=== PATIENT | male | born 1965 | race Caucasian/White ===

== ENCOUNTER 2021-03-26 11:04 | Emergency (ER) | payer SELFPAY ==
[2021-03-26 11:29] VITALS: BP 137/87; PULSE 82; RESP 18; TEMP 36.6; O2SAT 97; BMI 24.3
[2021-03-26 11:40] VITALS: BP 128/85; PULSE 70; RESP 18; TEMP 36.9; O2SAT 98
--- NOTE | 2021-03-26 11:40 | USR_ITS ---
PROCEDURE INFORMATION: Exam: US Retroperitoneal; Complete; Kidneys and Bladder Exam date and time: 03/26/2021 11:40 AM Age: 56 years old Clinical indication: Other: Blood clots in urin; Additional info: Evaluate for cancer TECHNIQUE: Imaging protocol: Real-time ultrasound of the retroperitoneum with image documentation. Complete exam focused on the kidneys and bladder. COMPARISON: No relevant prior studies available. FINDINGS: Right kidney: Right kidney measures 11.6 x 5.8 x 6.0 cm and has normal cortical thickness and echogenicity. There is no focal mass, stone or hydronephrosis. Left kidney: Left kidney measures 12.2 x 5.8 x 4.7 cm. There is moderate left hydronephrosis. No focal mass or stone is identified. Urinary bladder: There is a mass demonstrating blood flow within the urinary bladder which is suspicious for bladder tumor such as an invasive carcinoma. Further evaluation suggested. US/US renal BI* [id number] IMPRESSION: 1. Findings worrisome for malignant tumor of the urinary bladder. 2. Left hydronephrosis. Radiation Dose CTDIVOL = (mGy): DLP = (mGy-cm)
--- NOTE | 2021-03-26 11:44 | ED_ITS ---
HPI - General Adult General: Chief complaint: Urogenital-Male Stated complaint: blood in urine Time Seen by Provider: 03/26/21 11:20 History of Present Illness: HPI narrative: Patient is a 56-year-old male with no significant past medical history presents to the emergency room 2 days of hematuria with clots. Patient reports symptoms of polyuria, denies any dysuria. No prior history of hematuria, prostate issue, trauma to the groin. Patient has no flank pain, nausea/vomiting, fever/chills. Patient denies any recent weight loss. Onset: 2 days ago Duration:2 days Location:home Severity:moderate Review of Systems Narrative: Constitutional: No fever, no chills. HEENT: No vision changes CV: No chest pain, no palpitations PULM: no cough, no dyspnea. GI: No abdominal pain, no N/V/D. : No dysuria, +polyuria/hematuria MSKEL: No muscle pain SKIN: No new rashes, no lesions. NEURO: No headache, no focal weakness. HEME: No visible bruises PSYCH: Normal mood PFSH ED PFSH: Medical History (Updated 03/28/21 @ 16:33 by ANA Cochran) Chronic back pain Family History (Updated 03/28/21 @ 16:34 by ANA Cochran) Father CAD (coronary artery disease) Hypertension Social History Lives independently: Yes Housing: House Marital status: / Number of children: 3 Physical Exam Narrative: EXAM NARRATIVE: Head: Atraumatic Eyes: PERRL, conjunctiva without injection ENT: Mucous membrane moist NECK: Supple, ROM intact LUNGS: LCTAB, no crackles/rhonchi CV: RRR ABDOMEN: Soft, no focal TTP. NO guarding rebound, guarding, rigidity. No CVA tenderness to percussion. Neg Zhang/Neg McBurney's point tenderness, no campbell prabupic tenderness to palpation. EXTREMITY: Normal ROM SKIN: No rash or erythema NEURO: Awake and alert, no focal motor deficits PSYCH: Normal mood and affect Course Vital Signs: Vital signs: Vital Signs Temperature 98.2 F 03/26/21 13:49 Pulse Rate 84 03/26/21 13:49 Respiratory Rate 17 03/26/21 13:49 Blood Pressure 136/81 03/26/21 13:49 Pulse Oximetry 98 03/26/21 13:49 MDM - General Adult MDM Narrative: Medical decision making narrative: 56-year-old male presented to emergency room with new onset of hematuria x2 days with passage of clots and polyuria. Patient has no other focal findings on exam. Work-up: CBC, BMP, UA, and ultrasound for evaluation of possible bladder cancer. Hemoglobin within normal limit. Creatinine within normal limit. Ultrasound shows a left-sided hydronephrosis with lesion in the bladder. Have discussed these findings extensively with patient and patient received the ultrasound re port this time. I have given patient follow up with our case work aide to be seen by our outpatient Urologist Dr. Stallings for further evaluation of bladder lesion. Patient aware of a call from our case work aide to schedule for appointment(s) and verbalizes understanding of the importance of following up. Disposition: Discharge. Patient counseled regarding diagnostic impression, treatment plan. Patient given ED strict return precautions to return for continuation, worsening, or development of new symptoms. Instructed to f/u w/ Urology regarding symptoms today. Patient verbalized understanding. Lab Data: Labs: Lab Results 03/26/21 03/26/21 03/26/21 11:15 11:47 11:47 WBC 8.4 10^3/uL 10^3/ uL (4.0-10.0) RBC 4.98 10^6/uL 10^6 /uL (4.1-5.3) Hgb 16.0 g/dL g/dL (11.7-16.6) Hct 46.2 % % (42.0-52.0) MCV 92.8 fl fl (80-94) MCH 32.1 pg pg (28.0-34.0) MCHC 34.6 g/dL g/dL (30.0-36.0) RDW 12.7 % % (12.1-15.1) Plt Count 291 10^3/cmm 10^3 /cmm (130-400) MPV 10.2 fL fL (7.4-10.4) Neut % (Auto) 70.5 % % Lymph % (Auto) 19.7 % % [place] % (Auto) 8.4 % % Eos % (Auto) 0.5 % % Baso % (Auto) 0.5 % % Neut # (Auto) 5.94 10^3/uL 10^3 /uL (1.8-7.7) Lymph # (Auto) 1.7 10^3/uL 10^3/ uL (0.8-4.8) [place] # (Auto) 0.7 10^3/uL 10^3/ uL (0.2-0.9) Eos # (Auto) 0.0 10^3/uL 10^3/ uL (0.0-0.8) Baso # (Auto) 0.0 10^3/uL 10^3/ uL (0.0-0.1) Nucleated RBC % (a uto) 0 % % Nucleated RBCs # 0.0 /100WBC /100W BC Sodium 141 mmol/L mmol/L (136-145) Potassium 4.1 mmol/L mmol/L (3.5-5.1) Chloride 104 mmol/L mmol/L (98-107) Carbon Dioxide 27 mmol/L mmol/L (22-29) Anion Gap 14.1 (5-19) BUN 16 mg/dL mg/dL (6-20) Creatinine 1.0 mg/dL mg/dL (0.7-1.2) GFR Calculation 77.3 mL/min L mL/ min (90-130) Glucose 95 mg/dL mg/dL (65-115) Calculated Osmolal ity 293 mOsm/kg mOsm/ kg (285-295) Calcium 8.9 mg/dL mg/dL (8.5-10.5) Urine Color Red (Yellow) Urine Appearance Bloody A (CLEAR) Urine pH 6.5 (5-7) Ur Specific Gravit y 1.010 (1.005-1.030) Urine Protein 3+ H (Negative) Urine Glucose (UA) Norm (Normal) Urine Ketones Negative (Negative) Urine Blood 3+ H (Negative) Urine Nitrate Negative (Negative) Urine Bilirubin Neg (Negative) Urine Urobilinogen 1 mg/dL H mg/dL (Negative) Ur Leukocyte Kemi ase Negative (Negative) Urine RBC Too numerous to c nt /hpf H /hpf (0-2) Urine WBC 0-4 /hpf H /hpf (0-5) Ur Squamous Epith Cells None /hpf /hpf (0-5) Amorphous Sediment Not Reportable Urine Bacteria Trace /hpf /hpf (NONE) Imaging Data^: Other Imaging: Radiologist's impression: [address], [place] [address]Jrgwdqtfag ReportSigned with Addenda Patient: Bill Quintero #: [id number]: [birth year] 65Acct#:[id number]/Sex: 56 / MADM Date: 03/26/21Loc: ERRoom/Bed:Attending Dr: Ordering Provider/Ordering MD: Donna Angela MD Date of Service: 03/26/21 Procedure(s): US renal BI* [id number] Accession Number(s): [id number] Report Number: [id number] ADDENDUM US/US renal BI* [id number] Addendum: THIS REPORT CONTAINS FINDINGS THAT MAY BE CRITICAL TO PATIENT CARE. The findings were acknowledged by DONNA ANGELA at 1:41 PM CDTon 03/26/2021through the operation center. Radiation Dose CTDIVOL = (mGy): DLP = (mGy-cm) Addendum Dictated By: Chris GarghAddendum Signed By: Yoan Garg Date/Time:03/26/21 1343Addendum Cosigned By: PROCEDURE INFORMATION: Exam: US Retroperitoneal; Complete; Kidneys and Bladder Exam date and time: 03/26/2021 11:40 AM Age: 56 years old Clinical indication: Other: Blood clots in urin; Additional info: Evaluate for cancer TECHNIQUE: Imaging protocol: Real-time ultrasound of the retroperitoneum with image documentation. Complete exam focused on the kidneys and bladder. COMPARISON: No relevant prior studies available. FINDINGS: Right kidney: Right kidney measures 11.6 x 5.8 x 6.0 cm and has normal cortical thickness and echogenicity. There is no focal mass, stone or hydronephrosis. Left kidney: Left kidney measures 12.2 x 5.8 x 4.7 cm. There is moderate left hydronephrosis. No focal mass or stone is identified. Urinary bladder: There is a mass demonstrating blood flow within the urinary bladder which is suspicious for bladder tumor such as an invasive carcinoma. Further evaluation suggested. US/US renal BI* [id number] IMPRESSION: 1. Findings worrisome for malignant tumor of the urinary bladder. 2. Left hydronephrosis. Radiation Dose CTDIVOL = (mGy): DLP = (mGy-cm) Dictated By:Yoan Garg By:Yoan Garg Date/Time:03/26/21 1333DD/ 1140 Discharge Plan Discharge Patient Disposition: Home Clinical Impression: Hematuria, Bladder mass Condition: Stable Prescriptions: No Action No Known Home Medications RF: 0 Discharge Orders: Discharge ED (Routine); Ordered 03/26/21 Ordered By: Donna Angela Referrals: Miracle Huddleston FNP [Primary Care Provider] - Discharge Diet: Advance as tolerated Discharge Activity: Resume usual activity Patient Instructions: Hematuria (ED) Activity Restrictions/Additional Instructions: Our case work aide will have you follow-up with our Urologist Dr. Stallings in the next few days. You would be expected to have a phone call with our case work aide who will put you on the schedule. Please follow up with Dr. Stallings for the bladder mass. Come back to the emergency room if you are unable to urinate, have fever or chills, flank pain, or any new concerning complaints. [address] [id number] ReportSigned Patient: Bill Quintero #: [id number]: 1965Acct#:[id number]/Sex: 56 / MADM Date: 03/26/21Loc: ERRoom/Bed:Attending Dr: Ordering Provider/Ordering MD: Donna Angela MD Date of Service: 03/26/21 Procedure(s): US renal BI* [id number] Accession Number(s): [id number] Report Number: [id number] PROCEDURE INFORMATION: Exam: US Retroperitoneal; Complete; Kidneys and Bladder Exam date and time: 03/26/2021 11:40 AM Age: 56 years old Clinical indication: Other: Blood clots in urin; Additional info: Evaluate for cancer TECHNIQUE: Imaging protocol: Real-time ultrasound of the retroperitoneum with image documentation. Complete exam focused on the kidneys and bladder. COMPARISON: No relevant prior studies available. FINDINGS: Right kidney: Right kidney measures 11.6 x 5.8 x 6.0 cm and has normal cortical thickness and echogenicity. There is no focal mass, stone or hydronephrosis. Left kidney: Left kidney measures 12.2 x 5.8 x 4.7 cm. There is moderate left hydronephrosis. No focal mass or stone is identified. Urinary bladder: There is a mass demonstrating blood flow within the urinary bladder which is suspicious for bladder tumor such as an invasive carcinoma. Further evaluation suggested. US/US renal BI* [id number] IMPRESSION: 1. Findings worrisome for malignant tumor of the urinary bladder. 2. Left hydronephrosis. Radiation Dose CTDIVOL = (mGy): DLP = (mGy-cm) Dictated By:Yoan Garg By:Yoan Garg Date/Time:03/26/21 1333DD/ 1140 Coding Level of Care Code ED [employer] for [facility]
[2021-03-26 12:10] LABS: Add Urine Microscopic? YES; Bilirubin Urine Neg (Negative); Blood Urine 3+ (Negative); Glucose Urine UA Norm (Normal); Ketones Urine Negative (Negative); Leukocyte Esterase Urine Negative (Negative); Nitrate Urine Negative (Negative); Protein Urine 3+ (Negative); Urine Appearance Bloody (CLEAR); Urine Color Red (Yellow); Urobilinogen Urine 1 mg/dL (Negative); pH Urine 6.5 (5-7)
[2021-03-26 12:11] LABS: Basophils % 0.5 %; Eosinophils % 0.5 %; Hematocrit 46.2 % (42.0-52.0); Lymphocytes # 1.7 10^3/uL (0.8-4.8); Lymphocytes % 19.7 %; Mean Corpuscular HGB Conc 34.6 g/dL (30.0-36.0); Mean Corpuscular Hemoglobin 32.1 pg (28.0-34.0); Mean Corpuscular Volume 92.8 fl (80-94); Mean Platelet Volume 10.2 fL (7.4-10.4); Monocytes # 0.7 10^3/uL (0.2-0.9); Monocytes % 8.4 %; Neutrophils # 5.94 10^3/uL (1.8-7.7); Neutrophils % 70.5 %; Nucleated Red Blood Cells % 0 %; Platelet Count 291 10^3/cmm (130-400); Red Blood Count 4.98 10^6/uL (4.1-5.3); Red Cell Distribution Width 12.7 % (12.1-15.1); White Blood Count 8.4 10^3/uL (4.0-10.0)
[2021-03-26 12:11] LABS: RBC Urine TOO NUMEROUS TO CNT /hpf (0-2)
[2021-03-26 12:13] LABS: Bacteria Urine TRACE /hpf; WBC Urine 0-4 /hpf (0-5)
[2021-03-26 12:14] LABS: Add Urine Culture? Yes
[2021-03-26 12:34] VITALS: BP 146/83; PULSE 81; RESP 17; O2SAT 98
[2021-03-26 12:37] LABS: Anion Gap 14.1 (5-19); Blood Urea Nitrogen 16 mg/dL (6-20); Calcium 8.9 mg/dL (8.5-10.5); Carbon Dioxide 27 mmol/L (22-29); Chloride 104 mmol/L (98-107); Glomerular Filtration Rate 77.3 mL/min (90-130); Glucose 95 mg/dL (65-115); Osmolality Calculated 293 mOsm/kg (285-295); Potassium 4.1 mmol/L (3.5-5.1); Sodium 141 mmol/L (136-145)
[2021-03-26 13:07] VITALS: BP 118/87; PULSE 88; RESP 18; O2SAT 98
[2021-03-26 13:41] VITALS: BP 136/81; PULSE 84; RESP 17; TEMP 36.8; O2SAT 98
[2021-03-26 13:49] VITALS: BP 136/81; PULSE 84; RESP 17; TEMP 36.8; O2SAT 98
--- NOTE | 2021-03-29 09:57 | PC.SOCIAL ---
Spoke to Ирина at Urology and notified of referral for Dr Stallings for bladder mass. She will review and call patient for appt.
--- NOTE | 2021-04-06 12:53 | DCPLANNER ---
Patient has a follow up appointment scheduled for Thursday, April 08, 2021 at 11:[address] Stallings. Clinic will call patient with appointment information.
--- NOTE | 2021-04-14 13:42 | DCPLANNER ---
Patient had a follow up appointment scheduled for 04.08.[address] Stallnigs - patient did attend appointment.
== END 2021-03-26 13:51 | disposition home or self-care (01) ==
PROVIDERS: Emergency Provider Emergency Medicine; PCP Nurse Practitioner Family
DX: R31.9 Hematuria, unspecified (principal); N32.9 Bladder disorder, unspecified
CPT/HCPCS: 76770; 80048; 81001; 85025; 87086; 99283

== ENCOUNTER → 2021-04-08 12:12 | Outpatient (BNVA) | payer MEDICARE, SELFPAY | PROVIDERS: PCP Nurse Practitioner Family; Visit Provider Urology | DX: N32.89 Other specified disorders of bladder (principal); C67.8 Malignant neoplasm of overlapping sites of bladder; N13.30 Unspecified hydronephrosis; Z20.822 Contact with and (suspected) exposure to COVID-19 | CPT/HCPCS: 81003; 87635 ==

== ENCOUNTER 2021-04-13 13:54 | Outpatient (CLI) | payer MEDICARE, SELFPAY ==
--- NOTE | 2021-04-13 14:00 | CT_ITS ---
WS: [id number] CT CHEST, ABDOMEN AND PELVIS WITH AND WITHOUT CONTRAST. HISTORY: BLADDER CANCER TECHNIQUE: Noncontrast imaging first performed through the abdomen and pelvis. Contiguous 5 mm axial imaging performed through the chest, abdomen and pelvis with IV contrast, oral contrast has not been provided. Coronal and sagittal reformats chest. Coronal and sagittal reformats through the abdomen an d pelvis. All CT scans at [facility] use at least one of these dose optimization techniques: automated exposure control; mA and/or kV adjustment per patient size (includes targeted exams where d ose is matched to clinical indication); or iterative reconstruction. CONTRAST: Omnipaque 350; 95 mL IV. DLP: 2056.63 mGy.cm COMPARISON: Renal ultrasound 03/26/[address]: There are a few benign scattered granulomata. No suspicious mass or pulmonary nodule identi fied. Normal aorta. Normal size pulmonary artery. No mediastinal or hilar adenopathy. The heart is no rmal size. No pericardial or pleural effusion. Mild RIGHT curvature thoracic spine. Mild anterior wed ging of T3, T4 and T5. Abdomen CT: Liver, spleen, pancreas, gallbladder and adrenal glands are normal. Normal aorta. Normal size RIGHT kidney with a few too small to characterize hypodensities. There is no solid mass o r obstruction. Normal size LEFT kidney. Marked hydroureteronephrosis. Ureter is tortuous a long-standing obstruction . The ureteral obstruction is secondary to a soft tissue mass in the urinary bladder. There is a none nhancing solid appearing mass in the upper pole of the LEFT kidney measuring 2.5 x 2.5 cm which is pr obably a complex cyst. There is no enhancement to suggest renal cell neoplasm. Diffuse constipation throughout the colon. The appendix is normal. No mesenteric or retroperitoneal a denopathy. Pelvic CT: Moderately well distended urinary bladder. There is a large soft tissue lobulated tumor ce ntered in the LEFT lateral urinary bladder extending into the lumen. There is extension of the soft t issue tumor across the midline both anterior and posterior. Bladder mass measures at least 5.6 cm in length with a diameter of 2.3 cm. Bladder masses obstructing the distal LEFT ureter. Prominent semina l vesicles bilaterally. Prostate gland is very slightly enlarged encroaching towards the urinary blad angie. No definite adenopathy is identified within the pelvis. No osteoblastic or osteolytic bone disease. CT/CT chest abd pel wo/w con IMPRESSION: 1. Large mass centered in the LEFT urinary bladder measuring at least 5.6 x 2. 3 cm causing obstruction of the LEFT ureter. Highly suspicious for transitional cell neoplasm. 2. High-grade LEFT hydroureteronephrosis secondary to the bladder neoplasm. 3. Nonenhancing solid mass upper pole LEFT kidney measuring 2.5 x 2.5 cm May b e a complex cyst. 4. No adenopathy or ascites. 5. No metastatic lesions within the lungs.
[2021-04-13] MEDS: iohexol 350 mg/mL 100 mL Btl IV (14:43)
== END 2021-04-13 13:55 | disposition home or self-care (01) ==
LOC: RAD 13:56
PROVIDERS: PCP Nurse Practitioner Family; Visit Provider Urology
DX: C67.9 Malignant neoplasm of bladder, unspecified (principal); N13.30 Unspecified hydronephrosis; Z20.822 Contact with and (suspected) exposure to COVID-19
CPT/HCPCS: 71260; 74178; 87635

== ENCOUNTER 2021-04-18 16:36 | Observation (INO) | payer MEDICARE, SELFPAY ==
[2021-04-15 14:12] VITALS: BMI 24.8
[2021-04-18] VITALS (8 sets, daily range): BP systolic 130–164; BP diastolic 77–101; PULSE 64–91; RESP 14–18; TEMP 36.5–36.7; O2SAT 95–98; BMI 25.0
[2021-04-18] MEDS: sodium chloride 0.9% 1,000 ML 30 ML IV (13:03)
--- NOTE | 2021-04-18 15:14 | P.HPUD_ITS ---
Surgery/Procedure H&P Update DATE OF PROCEDURE: April 18, 2021 DATE H&P PERFORMED: 04/14/21 H&P UPDATE INFORMATION: I have reviewed H&P completed within last 30 days, I have examined patient prior to procedure, No changes to prior documentation and H&[place] is in [facility] [place] on date indicated PREOP DIAGNOSIS: Bladder cancer PLANNED PROCEDURE: Operation Date: 04/18/21 14:10 Proposed Procedures p Transurethral Resection Bladder Tumor 52330 C67.8 C67.9(Not Applicable) - Panchito Stallings MD s Cystoscopy(Not Applicable) - Panchito Stallings MD
--- NOTE | 2021-04-18 15:25 | P.OP_ITS ---
Operative Report Date of procedure: April 18, 2021 Pre-op Diagnosis: Large volume, invasive TCCA of the bladder Post-op diagnosis: same Procedure Done: Cystoscopy, transurethral resection bladder tumor, >5 cm resection Specimens removed/disposition: Samples of bladder tumor Pathology: Resection chips from the site at the neck of the tumor into the bladder wall in 3 different areas. Surgeon: Haylie Anesthesia: General Estimated blood loss: <25 cc Urine output: Not measured Complications: None Findings: Very large widely involved invasive high-grade appearing TCCA of the bladder extending from the left lateral wall anteriorly posteriorly involving the left trigone. Very vascular. Given the full-thickness involvement of the bladder wall on both ultrasound and CT scan goal of this procedure was sampling in order to prove pathology and not try complete resection which would be futile. The hope is to prove the pathology and then attempt at definitive therapy via combination neoadjuvant chemotherapy and extirpative therapy possible neobladder construction. Area much >5 cm diameter resection around the base of the tumor into the bladder wall in 3 different areas anteriorly distally and medially. Condition: stable Disposition: PACU Brief History: Mr. Quintero is a 56-year-old white male who I evaluated recently for the first time with gross hematuria and was found to have a large invasive appearing bladder tumor both on ultrasound that preceded the visit and cystoscopy at his first visit. Was deemed to be a high risk tumor and therefore prior to biopsy or resection a CT scan was ordered. Thankfully it showed very large volume in the bladder but no clear evidence of extension outside of the bladder in the form of lymphadenopathy or bony disease. Did appear to involve full-thickness bladder wall and was obstructing the left ureteral orifice. Rather than attempt complete resection which would be futile it was decided to perform biopsies in the hopes of expediting more definitive therapy most likely neoadjuvant chemotherapy with radical cystectomy. He is admitted today for that sampling. Procedure: After routine preoperative evaluation examination and obtaining of informed consent he was taken to the operating suite on 04/18/2021 where general anesthesia was administered without difficulty after appropriate timeout was performed, SCDs confirmed to be functioning, preoperative antibiotics administered, beta-allison protocol confirmed. Prepped and draped in usual sterile fashion in dorsolithotomy position paying careful attention to avoiding pressure points. 21 Ugandan cystoscope with 30 degree lens was introduced into urethra meatus and advanced into the bladder to videoscopy without difficulty. The bladder was systematically examined with both 30 and 70 degree lenses. Intraoperative findings confirmed previous cystoscopic findings as well as appearance supported radiographically. The urethra was then calibrated with Holden sounds and easily accommodated 30 Ugandan. The 25 Ugandan continuous-flow resectoscope sheath with visual obturator in place was advanced into the bladder without difficulty. The gyrus bipolar system was utilized in the supersect was selected for sampling based on the density and thickness of the tissue. The tumor extended well into the middle of the lumen of the bladder. The sites for sampling were selected mostly around the base of the tumor where there was involvement with the bladder wall as well as the exophytic tumor. The distal and lateral resection sites extended about 6 cm into the bladder wall. Hemostasis was meticulously controlled. Sampling was excellent Hemostasis was obtained with button probe. A few areas on the 1 resected area on the most luminal side of the mass were friable and bleeding and these were fulgurated as well with the button probe. All chips were evacuated from the bladder with an Ellik evacuator. Final inspection confirmed hemostasis and all chips removed. Letter was drained with a 22 Ugandan three-way Mcmillan catheter with 10 cc placed in the balloon and CBI started in a slow rate remaining clear.
[2021-04-18] MEDS: levofloxacin-dextrose 5 % 500 MG/100 ML PREMIX 100 MG IV (15:37)
[2021-04-18] MEDS: lidocaine 2% Urojet 20 mL TOPICAL (16:18)
--- NOTE | 2021-04-18 17:11 | ANE.PACU2 ---
Inpatient post-anesthesia follow up: Airway intact: Yes Vital signs: Temperature 97.7 F Pulse Rate 64 Respiratory Rate 18 Blood Pressure 159/86 Pulse Oximetry 98 Oxygen Delivery Me thod Room Air Oxygen Flow Rate Fraction of Inspir ed Oxygen Hydration adequate: Yes Nausea and vomiting: No Pain level: 2 Mental status: Baseline
[2021-04-18 17:18] LABS: Glucose Point of Care 108 mg/dL (70-110)
[2021-04-18] MEDS: docusate sodium 100 mg Capsule PO (17:57)
[2021-04-18] MEDS: dextrose 5%-ns + KCl 20 20 MEQ/1,000 ML BAG 100 MEQ IV (17:57)
[2021-04-19 02:25] LABS: Basophils % 0.2 %; Hematocrit 42.3 % (42.0-52.0); Hemoglobin 14.4 g/dL (11.7-16.6); Mean Corpuscular Hemoglobin 31.4 pg (28.0-34.0); Mean Corpuscular Volume 92.2 fl (80-94); Mean Platelet Volume 10.2 fL (7.4-10.4); Monocytes # 0.7 10^3/uL (0.2-0.9); Monocytes % 5.9 %; Neutrophils # 9.54 10^3/uL (1.8-7.7); Neutrophils % 84.4 %; Nucleated Red Blood Cells % 0 %; Platelet Count 285 10^3/cmm (130-400); Red Blood Count 4.59 10^6/uL (4.1-5.3); Red Cell Distribution Width 12.5 % (12.1-15.1); White Blood Count 11.3 10^3/uL (4.0-10.0)
[2021-04-19 02:58] LABS: Blood Urea Nitrogen 15 mg/dL (6-20); Calcium 8.4 mg/dL (8.5-10.5); Carbon Dioxide 24 mmol/L (22-29); Chloride 105 mmol/L (98-107); Glomerular Filtration Rate 62.6 mL/min (90-130); Glucose 153 mg/dL (65-115); Osmolality Calculated 294 mOsm/kg (285-295); Sodium 140 mmol/L (136-145)
[2021-04-19] MEDS: dextrose 5%-ns + KCl 20 20 MEQ/1,000 ML BAG 100 MEQ IV (03:36)
[2021-04-19 04:01] VITALS: BP 136/78; PULSE 87; RESP 17; TEMP 36.7; O2SAT 97
[2021-04-19 08:00] VITALS: BP 152/84; PULSE 78; RESP 17; TEMP 36.6; O2SAT 98
[2021-04-19] MEDS: docusate sodium 100 mg Capsule PO (09:32)
[2021-04-19 12:00] VITALS: BP 159/84; PULSE 85; RESP 17; TEMP 36.9; O2SAT 96
--- NOTE | 2021-04-19 12:37 | PM.DCS ---
Discharge Providers Date of Admission: 04/18/21 16:36 Date of Discharge: April 19, 2021 Attending Provider at Admission: Panchito Stallings MD Attending Provider at Discharge: Panchito Stallings MD Primary Care Provider: ANA Lemons Diagnoses at Discharge Discharge Diagnosis (1) Bladder cancer: Status: Acute Permanent problem details: 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 Qualifiers: Bladder location: overlapping sites Qualified Code(s): C67.8 - Malignant neoplasm of overlapping sites of bladder (2) Hydronephrosis, left: Status: Acute Permanent problem details: Secondary to obstructing bladder cancer (3) Primary malignant neoplasm of overlapping sites of bladder: Status: Acute Reason for Visit Reason for Visit: Malignant neoplasm of bladder Hospital Course Hospital Course Admitted on the day of the procedure which went well. Complete resection was not attempted but rather adequate sampling to confirm TCCA. It is clear that this is a muscle invasive tumor based on ultrasound CT scan and cystoscopic findings. Resection was performed in the base to help evaluate for muscle involvement. Postoperatively he did well. Mcmillan catheter was removed on postop day #1 and he voided spontaneously with clearing urine. PVR bladder scan showed that he emptied well. Prior to catheter removal he was having a lot of problems with bladder spasms but those resolved with catheter removal. Scheduled tomorrow to see Dr. Moctezuma. Consult has been [facility] to [facility] for extirpative therapy planning possible neobladder. Physical Exam Const: COMMON NORMALS: no acute distress, alert and well nourished GENERAL APPEARANCE: well kempt and well developed ORIENTATION/CONSCIOUSNESS: not confused HENMT: COMMON NORMALS: normocephalic and atraumatic HEAD & SCALP: normocephalic and atraumatic Eye: COMMON NORMALS: conjunctivae normal and no scleral icterus CONJUNCTIVA: Yes conjunctivae normal Neck/C-Spine: COMMON NORMALS: full ROM GENERAL: Yes normal visual inspection Resp: COMMON NORMALS: normal respiratory effort EFFORT & INSPECTION: No labored and No Actively coughing Neuro: SENSORIUM/ORIENTATION: Yes alert Psych: COMMON NORMALS: mental status grossly normal APPEARANCE: Yes grossly normal and Yes well kempt ATTITUDE: Yes calm and Yes engaged Skin: COMMON NORMALS: no rashes or lesions noted and no jaundice GENERAL SKIN EXAM: no rashes or lesions noted Discharge Data Data Completed and Pending: Pending at discharge Category Date Time Status Pathology: Surgic al [PTH] Routine Pth 04/18/21 16:39 Received Labs from last 24 hours 04/19/21 04/19/21 04/18/21 02:06 02:06 17:13 WBC 11.3 H RBC 4.59 Hgb 14.4 Hct 42.3 MCV 92.2 MCH 31.4 MCHC 34.0 RDW 12.5 Plt Count 285 MPV 10.2 Neut % (Auto) 84.4 Lymph % (Auto) 9.0 [place] % (Auto) 5.9 Eos % (Auto) 0.0 Baso % (Auto) 0.2 Neut # (Auto) 9.54 H Lymph # (Auto) 1.0 [place] # (Auto) 0.7 Eos # (Auto) 0.0 Baso # (Auto) 0.0 Nucleated RBC % (a uto) 0 Nucleated RBCs # 0.0 Sodium 140 Potassium 4.0 Chloride 105 Carbon Dioxide 24 Anion Gap 15.0 BUN 15 Creatinine 1.2 GFR Calculation 62.6 L Glucose 153 H POC Glucose 108 Calculated Osmolal ity 294 Calcium 8.4 L Vitals: Last Vital Signs Temp 97.8 F 04/19/21 08:00 Pulse 78 04/19/21 08:00 Resp 17 04/19/21 08:00 BP 152/84 04/19/21 08:00 Pulse Ox 98 04/19/21 08:00 Discharge Plan Discharge Patient Disposition: Home Condition: Stable Prescriptions: No Action No Known Home Medications RF: 0 Discharge Orders: Discharge Order (Routine); Ordered 04/19/21 Ordered By: Panchito Stallings Referrals: Panchito Stallings MD [Physician] - (To be arranged) Discharge Diet: Usual diet Discharge Activity: Limit activity as instructed Patient Instructions: Opioid Safety Activity Restrictions/Additional Instructions: Urology instructions: 1. Follow-up with Dr. Moctezuma as scheduled 2. We will need to communicate later this week to review the final pathology report. If you have not heard from me by Sunday please call my office. 3. Consult to [place] is pending. Can move ahead with chemotherapy and lieu of that consult. 4. No lifting >10 pounds for 3 to 4 weeks. Discharge Attestations Time Spent in Discharge Care*: greater than 30 min Quality Metrics Clinical Quality Measures During this hospital stay, did patient experience: None Coding Level of Care Code Acute Chg FW DC note Diagnoses Bladder cancer C67.8 Bladder location: overlapping sites Hydronephrosis, left N13.30 Primary malignant neoplasm of overlapping sites of bladder C67.8
[2021-04-19 13:46] VITALS: BP 159/84; PULSE 85; RESP 17; TEMP 36.9; O2SAT 96
--- NOTE | 2021-04-21 13:34 | PC.SOCIAL ---
spoke with dr. bustillos office regarding follow up. they will call the pt with a follow up date and time.
== END 2021-04-19 13:46 | disposition home or self-care (01) ==
LOC: MEDSURG 16:37
PROVIDERS: Admitting Provider Urology; PCP Nurse Practitioner Family; Visit Provider Urology
PROC: 0TBB8ZZ Excision of Bladder, Via Natural or Artificial Opening Endoscopic (ICD-10-PCS; CPT 52240; principal; 2021-04-18 14:10)
PROC: 0TJB8ZZ Inspection of Bladder, Via Natural or Artificial Opening Endoscopic (ICD-10-PCS; CPT 52000; 2021-04-18 14:10)
DX: C67.8 Malignant neoplasm of overlapping sites of bladder (principal); N13.30 Unspecified hydronephrosis
CPT/HCPCS: 52240; 36415; 36416; 51798; 80048; 82962; 85025; 88309; G0378; J1100; J1956; J2370; J2405; J2704; J3010; J3490; J7030

== ENCOUNTER 2021-04-20 13:38 | Outpatient (CLI) | payer MEDICARE, SELFPAY ==
--- NOTE | 2021-04-20 16:34 | ONC CON_ITS ---
Dr. Moctezuma New Patient Note Patient: iBll Quintero Unit #: [id number]: 1965 Dicatated By: Benito Moctezuma M.D.Date of Visit: Apr 20, 2021 Onc MED New Patient/Consult Referring Physician: Dr. Panchito Stallings M.D. Chief Complaint: Bladder cancer. History of Present Illness: This is a 56-year-old man with recently diagnosed bladder cancer, presumed to be muscle invasive, by clinical evaluation stage II (T2b, N0, M0). He indicates that sometime around December he began having more frequent urination. Within the past month he began having hematuria. On 03/26/2021 he presented to the emergency room with a 2-day history of recurrent hematuria with clots. Renal ultrasound showed a mass within the urinary bladder which was suspicious for bladder tumor. There was associated left hydronephrosis. He was then seen by Dr. Stallings and further evaluation with CT scans of the chest, abdomen, and pelvis on 04/13/2021 showed a large mass centered in the left urinary bladder measuring at least 5.6 x 2.3 cm. There was associated obstruction of the left ureter and there was marked hydroureteronephrosis. A nonenhancing solid mass was noted in the upper pole of the left kidney measuring 2.5 x 2.5 cm, possibly representing complex cyst. There was no associated adenopathy or other evidence of metastatic disease. On 04/18/2021 he underwent cystoscopy with TURBT. He was noted to have a very large invasive high-grade appearing urothelial cancer extending from the left bladder wall anteriorly and posteriorly to involve the left trigone. Multiple biopsies were obtained, as the tumor did not appear to be amenable to complete resection. Pathology results are still pending. He is seen now for further management. He has been feeling good generally. Still has normal energy and activity tolerance. His ECOG score is 0. His appetite is good and his weight is stable. He has no fever or night sweats. He does have a significant smoking history, but he does not complain of shortness of breath or cough, and he has not been having any chest pain. He has no GI complaints. He has been having very frequent urination with urgency, that has worsened since the procedure. He has had some chronic back pain, which is not any worse. He has no other joint or bone pain. He does not complain of headache or dizziness, and he has no focal neurologic symptoms. Past Medical History: His medical history includes chronic back pain and history of head injury in 2009. Past Surgical History: He underwent cystoscopy/TURBT on 04/18/2021. Medications: He is currently not on any prescription medication. Allergies: No Known Allergies. Social History: Mr. Quintero is . He has a history of smoking up to 2 packs of cigarettes daily beginning at age 17. He quit smoking approximately 10 years ago, but he has since then chewed tobacco. He has had just very little alcohol use. Family History: Father of heart attack at age 52. Mother with colon cancer at age 70. He has 7 siblings. A sister has diabetes. The others are in good health. Review Of Symptoms: Constitutional - He has good energy and activity tolerance. Appetite is good and weight is stable. No fever, night sweats, or hot flashes. ECOG score is 0, Eyes - No change in vision, ENMT - No hearing loss or tinnitus. No sinus congestion/drainage. No mouth sores. No sore throat or difficulty swallowing, Hematologic/Lymphatic - No abnormal bruising, Respiratory - No shortness of breath. No cough. No pleuritic pain or hemoptysis, Cardiovascular - No angina pain. No palpitations, Gastrointestinal - No nausea or vomiting. No heartburn or acid reflux. No diarrhea or constipation. No blood in the stool or black stools, Genitourinary (M) - He has urinary frequency and urgency, which has worsened significantly since his cystoscopy procedure. He also has had hematuria, Musculoskeletal - He has had some chronic back pain, Integumentary - No skin rash or other skin changes, Neurologic - No headache or dizziness. No numbness or tingling. No other focal neurologic symptoms, Psychiatric - He has had some anxiety, but no depression. He is having some difficulty sleeping. Vital Signs: Performed on Apr 20, 2021 14:46: 8, 0, 25.54, 1.99 sq.m, 70 in, 96 %, 83 /min, 18 /min, 152/86 mm(hg) (HIGH), 98.5 F, and 178 lbs (HIGH). Physical Examination: Constitutional - He appears to be in good general health, Eyes - Sclerae nonicteric. Conjunctivae clear, ENMT - No lesions noted in the oral cavity, Neck - No mass or thyromegaly, Hematologic/Lymphatic - No cervical, clavicular, or axillary adenopathy, Respiratory - Lungs sound clear, Cardiovascular - Heart rhythm is regular. There is no murmur, gallop, or rub noted, Abdomen - Soft and non-tender. Liver and spleen are not enlarged. There is no abdominal mass or ascites noted and there is no inguinal adenopathy, Back/Spine - No spine or CVA tenderness noted, Extremities - No edema. He has good pedal pulses bilaterally, Integumentary - No rashes. No suspicious skin lesions noted, Neurologic - No focal neurologic deficits noted. Lab/Imaging: CBC showed hemoglobin 14.4 g, white blood cell count 11,300, and platelet count 285,000. Basic metabolic profile showed borderline renal function with BUN 15 and creatinine 1.2 mg/dL. Problem List: 1. Locally advanced, high-grade urothelial cancer involving the left bladder wall, by clinical evaluation stage II (T2b, N0, M0). 2. History of head injury in 2009. 3. Chronic back pain. Problems Addressed with this Encounter and Plan: Patient with clinical evidence of locally advanced, high-grade urothelial cancer involving the left bladder wall, by clinical evaluation stage II (T2b, N0, M0). He underwent cystoscopy with TURBT on 04/18/2021. Pathology results are still pending. However, based on clinical findings, his disease appears to be muscle invasive but still confined to the bladder. As such, he is recommended to proceed with neoadjuvant chemotherapy with a dose dense MVAC regimen for 3-4 cycles followed by radical cystectomy. Depending on the findings at surgery, he may also then be eligible for adjuvant immunotherapy. I reviewed anticipated side effects with the chemotherapy including the potential for nausea/vomiting, alopecia, fatigue, and low blood counts, among others. He will need to undergo placement of venous access device for the chemotherapy, and for that I will arrange for him to see one of the surgeons this week. The tentative plan will be to start chemotherapy sometime next week. In the meantime, I will be in contact with Dr. Stallings regarding referral for his cystectomy. In addition, he will be given Levaquin 500 mg daily for 5 days and short-term phenazopyridine for the bladder symptoms. Signed By: Benito Moctezuma M.D. <<Signature on File>>
== END 2021-04-20 13:39 | disposition home or self-care (01) ==
PROVIDERS: PCP Nurse Practitioner Family; Visit Provider Internal Medicine Medical Oncology
DX: C67.9 Malignant neoplasm of bladder, unspecified (principal); M54.50 Low back pain, unspecified; G89.29 Other chronic pain; Z87.820 Personal history of traumatic brain injury; Z79.899 Other long term (current) drug therapy
CPT/HCPCS: 99205

== ENCOUNTER → 2021-04-21 13:32 | Outpatient (BNVA) | payer MEDICARE, SELFPAY | PROVIDERS: PCP Nurse Practitioner Family; Visit Provider Surgery | DX: C67.8 Malignant neoplasm of overlapping sites of bladder (principal); Z20.822 Contact with and (suspected) exposure to COVID-19 | CPT/HCPCS: 87635 ==

== ENCOUNTER 2021-04-26 06:38 | Day surgery (SDC) | payer MEDICARE, SELFPAY ==
--- NOTE | 2021-04-26 | SCC_ITS ---
Procedure Done: 1. Placement of PowerPort via right subclavian vein 2. Fluoroscopic guidance and interpretation for placement of catheter 9.8 seconds of fluoroscopic guidance, for a cumulative dose of 1.19 mGy, was provided to Dr. Keith by the radiology department. C-arm images of the chest were saved for the patient's permanent record. [facility]
--- NOTE | 2021-04-26 06:44 | SC_ITS ---
WS: [id number] C-ARM RADIOGRAPHS CHEST; 3 IMAGES HISTORY: Power port Placement COMPARISON: None available. Intraoperative imaging performed for placement. Power port enters the RIGHT subclavian vein. The tip terminates at the junction of the subclavian vein with the RIGHT innominate vein. SC/C-arm FL for CVA [id number] IMPRESSION: RIGHT PowerPort has been inserted. The tip terminates near the junction of the RIGHT innominate vein and subclavian vein.
[2021-04-26 07:02] VITALS: BP 148/91; PULSE 87; RESP 16; TEMP 36.7; O2SAT 98
[2021-04-26 07:03] VITALS: BMI 25.5
[2021-04-26] MEDS: sodium chloride 0.9% 1,000 ML 30 ML (07:21)
--- NOTE | 2021-04-26 07:47 | ANES.PREANE2 ---
Pre-Anesthetic Assessment Pre-Anesthetic Assessment: Height/Weight: Height 1.78 m Weight 80.739 kg Temp Pulse Resp BP Pulse Ox 98.0 F 87 16 148/91 98 04/26/21 07:02 04/26/21 07:02 04/26/21 07:02 04/26/21 07:02 04/26/21 07:02 Preop Diagnosis: Bladder cancer Proposed Procedure: Operation Date: 04/26/21 08:20 Proposed Procedures p Portacath Placement 76033 c67.8(Not Applicable) - Blair Keith MD Familial anesthetic complications: none Was Beta Lucho taken within 24 hours: N/A Was Clonidine taken within 24 hours: N/A Last intake: Intake Last Liquid Date 04/26/21 Last Liquid Time 06:00 Last Solid Date 04/25/21 Last Solid Time 22:00 Social: Social History: No alcohol and No tobacco Exam: Pre-Anes Outpt Exam: alert, oriented x 3, clear to auscultation bilaterally and regular rate & rhythm Airway: Cervical ROM: WNL MP: 1 Dentition: Other (none) : Comments: bladder cancer Anesthetic Plan: ASA status: 2 Anesthesia: MAC Risk of > 500 ml blood loss (7ml/kg in children): No PFSH Anesthesia PFSH: Medical History Bladder cancer 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 Chronic back pain Hydronephrosis, left Secondary to obstructing bladder cancer Primary malignant neoplasm of overlapping sites of bladder Family History Father , AT AGE 55 CAD (coronary artery disease) Hypertension Heart attack Mother , AT AGE 73 Cancer COLON Social History Alcohol intake: current Alcohol intake frequency: holidays/special occasions only Marital status: / Number of children: 3 Current occupational status: disabled History of recent travel: No Data Anesthesia Cardiac Studies: No Data to Display
--- NOTE | 2021-04-26 07:49 | W.PM.OPSUD ---
Surgery/Procedure H&P Update DATE OF PROCEDURE: April 26, 2021 DATE H&P PERFORMED: 04/21/21 H&P UPDATE INFORMATION: I have reviewed H&P completed within last 30 days, I have examined patient prior to procedure and No changes to prior documentation PREOP DIAGNOSIS: Bladder cancer PRIMARY INDICATION FOR PROCEDURE: The same PLANNED PROCEDURE: Operation Date: 04/26/21 08:20 Proposed Procedures p Portacath Placement 31500 c67.8(Not Applicable) - Blair Keith MD
[2021-04-26] MEDS: lidocaine 2% INJ 20 mL INJECTION (08:38)
--- NOTE | 2021-04-26 08:57 | P.OP_ITS ---
Operative Report Date of procedure: April 26, 2021 Pre-op Diagnosis: Bladder cancer Procedure Done: 1. Placement of PowerPort via right subclavian vein 2. Fluoroscopic guidance and interpretation for placement of catheter Surgeon: Blair Keith Asl Interpreter: hydroelectric systems technician Radha Circulating nurse Dunia Alegre Anesthesia: MAC (Kiah Cain) Estimated blood loss (mL): 5 Condition: stable Disposition: same day Brief History: Bladder cancer Procedure: Patient was identified in the holding area and taken to the operative room and placed in supine position IV propofol was given by the anesthesia provider ,both arms were tucked,Time-out was done verifying the patient's name/date of /planned procedure and destination after the procedure, all were in agreement. SCDs confirmed to be functioning, preoperative antibiotics administered per protocol, and beta allison protocol was confirmed, appropriate positioning of the patient was done by me. Medications were reviewed to assess for anticoagulant usage. Risks and benefits and prevention of central line associated blood stream infection (CLABSI) were discussed with the patient/CPOA, and a consent was obtained. Monitors were in place and monitored throughout the procedure. All necessary supplies were available prior to start. Hand hygiene was completed prior to starting. Maximum barrier technique was utilized including a sterile gown, sterile gloves with a hat and mask. Site was was prepped with [chlorhexidine] and a full body drape was placed. 5 mL of 2% lidocaine was injected into the skin with a 25 gauge needle. Prep& drape was done under the usual sterile technique, lidocaine 2% was injected at the site of the stick, started by right subclavian vein stick that retrieved venous blood was obtained from the first stick, a guidewire was then threaded and under the guidance of fluoroscopy position was confirmed to be in the IVC and my interpretation, there was no PVC changes, at that point the guidewire was secured to the drapes with a hemostat and the needle was taken out, attention was then deviated towards creation of a pocket for the port were lidocaine 2% was injected using an 15 blade knife skin incision was created dissection using the Bovie to create a pocket for the Port-A-Cath to be accommodated, hemostasis was secured, after the port being appropriately flushed it was inserted into the pocket and a tunneler was used to accommodate the catheter of the port cath to be delivered through the incision first created at the site of the stick, at that point under fluoroscopy an estimated length was measured for the catheter and was cut at the designed level, followed by that a dilator with the sheath introduced onto the guidewire the dilator and the wire were retrieved and the catheter of the port was introduced via the sheath where it was peeled off and the catheter maintained to be in the SVC that was confirmed with fluoroscopy, and the fluoroscopy interpretation was done by me throughout the entire procedure. The port was kept in its pocket, 3-0 Vicryl deep subdermal interrupted sutures, skin was then closed by 4-0 Monocryl as subcuticular closure. The port was appropriately flushed with heparin and venous blood was withdrawn without difficulty The stick site was closed by 3-0 Vicryl and surgical glue was used followed by dressing. Patient tolerated the procedure well was taken to the recovery area Count was correct at the end of the procedure I was present for the whole entire procedure Position of the catheter was checked with a postoperative chest x-ray and it was in good position without evidence of pneumothorax
--- NOTE | 2021-04-26 09:02 | XRR_ITS ---
PROCEDURE INFORMATION: Exam: XR Chest Exam date and time: 04/26/2021 9:02 AM Age: 56 years old Clinical indication: Device placement; Other: Status post placement of right subclavian vein powerport; Prior surgery; Surgery date: Post-operative (0-2 days) TECHNIQUE: Imaging protocol: XR of the chest. Views: 1 view. COMPARISON: CT chest abd pel wo/w con 04/13/2021 2:37 PM FINDINGS: Tubes, catheters and devices: Right IJ approach MediPort is in satisfactory position, with distal tip in the SVC, approximately 2 cm above the SVC/RA junction. Lungs: Minimal bibasilar atelectasis. No consolidation. Pleural spaces: Unremarkable. No pleural effusion. No pneumothorax. Heart/Mediastinum: Unremarkable. No cardiomegaly. Bones/joints: Unremarkable. XR/XR chest 1V portable [id number] IMPRESSION: Right-sided MediPort in satisfactory position. No pneumothorax. Radiation Dose CTDIVOL = (mGy): DLP = (mGy-cm)
[2021-04-26 09:04] VITALS: BP 87/45; PULSE 63; RESP 17; TEMP 36.6; O2SAT 95
[2021-04-26 09:05] VITALS: BP 87/51; PULSE 63; RESP 17; O2SAT 96
[2021-04-26 09:10] VITALS: BP 104/59; PULSE 61; RESP 17; O2SAT 98
[2021-04-26 09:15] VITALS: BP 104/59; PULSE 72; RESP 18; TEMP 36.4; O2SAT 98
[2021-04-26 09:22] VITALS: BP 119/85; PULSE 70; RESP 18; O2SAT 99
--- NOTE | 2021-04-26 13:46 | ANE.PACU2 ---
Inpatient post-anesthesia follow up: Airway intact: Yes Vital signs: Temperature 97.6 F Pulse Rate 70 Respiratory Rate 18 Blood Pressure 119/85 Pulse Oximetry 99 Oxygen Delivery Me thod Room Air Oxygen Flow Rate 6 Fraction of Inspir ed Oxygen Hydration adequate: Yes Nausea and vomiting: No Pain level: 2 Mental status: Baseline
== END 2021-04-26 09:54 | disposition home or self-care (01) ==
PROVIDERS: PCP Nurse Practitioner Family; Visit Provider Surgery
PROC: (CPT 36561; principal; 2021-04-26 08:10)
DX: C67.9 Malignant neoplasm of bladder, unspecified (principal); Z90.5 Acquired absence of kidney
CPT/HCPCS: 36561; 71045; 76000; 77001; 96365; C1788; J0690; J2250; J2704; J3010; J7030

== ENCOUNTER 2021-04-27 06:51 | Outpatient (CLI) | payer MEDICARE, SELFPAY ==
[2021-04-27] MEDS: sodium chloride 0.9% 500 ML 75 ML IV (08:38)
[2021-04-27 09:15] LABS: Basophils % 0.5 %; Eosinophils # 0.2 10^3/uL (0.0-0.8); Eosinophils % 2.2 %; Hematocrit 41.1 % (42.0-52.0); Lymphocytes # 1.9 10^3/uL (0.8-4.8); Lymphocytes % 24.7 %; Mean Corpuscular HGB Conc 34.1 g/dL (30.0-36.0); Mean Corpuscular Volume 91.1 fl (80-94); Mean Platelet Volume 10.6 fL (7.4-10.4); Monocytes # 0.7 10^3/uL (0.2-0.9); Monocytes % 9.1 %; Neutrophils # 4.86 10^3/uL (1.8-7.7); Neutrophils % 63.2 %; Nucleated Red Blood Cells % 0 %; Platelet Count 284 10^3/cmm (130-400); Red Blood Count 4.51 10^6/uL (4.1-5.3); Red Cell Distribution Width 12.8 % (12.1-15.1); White Blood Count 7.7 10^3/uL (4.0-10.0)
[2021-04-27 09:19] LABS: Alanine Aminotransferase 31 U/L (0-41); Albumin Level 3.5 g/dL (3.5-5.2); Alkaline Phosphatase 70 IU/L (40-130); Anion Gap 12.1 (5-19); Aspartate Amino Transferase 27 U/L (0-40); Blood Urea Nitrogen 19 mg/dL (6-20); Calcium 7.7 mg/dL (8.5-10.5); Carbon Dioxide 29 mmol/L (22-29); Chloride 107 mmol/L (98-107); Globulin 2.8 g/dL (1.3-4.6); Glucose 121 mg/dL (65-115); Osmolality Calculated 302 mOsm/kg (285-295); Potassium 4.1 mmol/L (3.5-5.1); Sodium 144 mmol/L (136-145); Total Bilirubin 0.2 mg/dL (0.15-1.2); Total Protein 6.3 g/dL (6.6-8.7)
[2021-04-27 09:39] LABS: Hepatitis B Core AB, Total Non-Reactive (Nonreactive); Hepatitis B Surface AB 3.5 (11.5-1000); Hepatitis B Surface Antigen Non-Reactive (Nonreactive)
[2021-04-27] MEDS: famotidine 20 mg/2 mL INJ IVP (10:59)
[2021-04-27] MEDS: diphenhydrAMINE 50 mg/mL SDV 1mL 25 MG IV (11:01)
[2021-04-27] MEDS: palonosetron 0.25 mg/5 mL SDV IV (11:15)
[2021-04-27] MEDS: fosaprepitant 150 MG in sodium chloride 0.9% 150 ML 300 MG IV (11:43)
[2021-04-27] MEDS: DOXORUBICIN IV (13:53)
[2021-04-27] MEDS: [UNRECOGNIZED DRUG - OTHER] IV (13:53)
[2021-04-27] MEDS: FUROsemide 10 mg/mL SDV 2mL 20 MG IV (14:03)
[2021-04-27] MEDS: potassium chloride 20 MEQ in sodium chloride 0.9% 500 ML 255 MEQ IV (14:04)
[2021-04-27] MEDS: pegfilgrastim 6 mg/0.6 mL Kit (onpro) SUBCUT (15:09)
== END 2021-04-27 06:52 | disposition home or self-care (01) ==
PROVIDERS: PCP Nurse Practitioner Family; Visit Provider Internal Medicine Medical Oncology
DX: Z51.11 Encounter for antineoplastic chemotherapy (principal); C67.2 Malignant neoplasm of lateral wall of bladder; Z79.899 Other long term (current) drug therapy
CPT/HCPCS: 80053; 85025; 86705; 86706; 87340; 96366; 96367; 96372; 96375; 96377; 96411; 96413; 96417; J1100; J1200; J1453; J1940; J2469; J2505; J3475; J3480; J3490; J7030; J7040; J9000; J9060; J9260; J9360

== ENCOUNTER 2021-05-04 07:08 | Outpatient (CLI) | payer MEDICARE, SELFPAY ==
--- NOTE | 2021-05-04 07:15 | USCV_ITS ---
Bill Quintero Age: 56 Gender: M : 1965 Exam Date: 05/04/2021 07:27 Ordering Phys: Benito Moctezuma MD Technologist: NATAN [place] [facility] [place] Indication: s/p CHEMO for Bladder CA. No hx cardiac intervention. BP: / HR: 97 Rhythm: Sinus Technical Quality: Adequate MEASUREMENTS (Male / Female) Normal Values 2D ECHO LV Diastolic Diameter PLAX 4.3 cm 4.2 - 5.9 / 3.9 - 5.3 cm LV Systolic Diameter PLAX 2.9 cm IVS Diastolic Thickness 1.3 cm 0.6 - 1.0 / 0.6 - 0.9 cm IVS Systolic Thickness 1.5 cm LVPW Diastolic Thickness 1.0 cm 0.6 - 1.0 / 0.6 - 0.9 cm LVPW Systolic Thickness 1.8 cm LVOT Diameter 2.2 cm LV Ejection Fraction 2D Teich 62.9 % LV Ejection Fraction MOD 2C 56.5 % LV Ejection Fraction 2C AL 58.4 % LA Diameter 3.0 cm LA Width 2.5 cm LA Height 4.6 cm RA Width 3.1 cm RA Height 4.7 cm Aorta at Sinotubular Diameter 3.3 cm M-MODE Aortic Annulus Diameter 3.4 cm LA Ao Ratio MM 0.9 MV E Point Septal Separation 0.4 cm DOPPLER AV Peak Velocity 77.0 cm/s LVOT Peak Velocity 82.0 cm/s AV Area Cont Eq vti 3.3 cm squared AV Area Cont Eq pk 4.0 cm squared MV Peak Velocity 77.0 cm/s MV Area PHT 3.5 cm squared Mitral E to A Ratio 0.6 MV E' Velocity 24.5 cm/s Mitral E to MV E' Ratio 6.3 Mitral E to LV E' Lateral Ratio 5.6 Mitral E to LV E' Septal Ratio 7.3 TR Peak Velocity 250.7 cm/s TR Peak Gradient 25.1 mmHg Right Atrial Pressure 3.0 mmHg Pulmonary Artery Systolic Pressu 28.1 mmHg PV Peak Velocity 86.7 cm/s FINDINGS Left Ventricle Normal left ventricular size, systolic function and wall thickness, with no regional wall motion abnormalities. Left ventricular ejection fraction is estimated at 60 %. Grade I diastolic dysfunction (abnormal relaxation filling pattern), normal to mildly elevated filling pressures. Right Ventricle Normal right ventricular size and systolic function. Right ventricular systolic pressure 23 mmHg. Right Atrium Normal right atrial size. Right atrial pressure estimated at 3 mmHg. Left Atrium Normal left atrial size. Mitral Valve Thickened mitral valve. No mitral valve stenosis. No mitral valve regurgitation. Aortic Valve Structurally normal trileaflet aortic valve. No aortic valve stenosis. No aortic valve regurgitation. Tricuspid Valve Structurally normal tricuspid valve. No tricuspid valve stenosis. Trace tricuspid valve regurgitation. Pulmonic Valve Structurally normal pulmonic valve. No pulmonary valve stenosis. Trace pulmonary valve regurgitation. Pericardium No pericardial effusion. Aorta Normal size aortic root and proximal ascending aorta. Normal- sized inferior vena cava with greater than 50% respiratory variation. CONCLUSIONS 1. Normal left ventricular size, systolic function and wall thickness, with no regional wall motion abnormalities. Left ventricular ejection fraction is estimated at 60 %. Grade I diastolic dysfunction (abnormal relaxation filling pattern), normal to mildly elevated filling pressures. 2. Normal right ventricular size and systolic function. 3. Normal pulmonary artery pressure. 4. No prior similar studies to compare. Serenity Allison MD (Electronically Signed) Final Date: 04 May 2021 12:07 S
[2021-05-04 08:58] LABS: Basophils # 0.1 10^3/uL (0.0-0.1); Basophils % 0.5 %; Eosinophils # 0.1 10^3/uL (0.0-0.8); Eosinophils % 0.8 %; Hematocrit 46.1 % (42.0-52.0); Hemoglobin 15.7 g/dL (11.7-16.6); Lymphocytes # 1.9 10^3/uL (0.8-4.8); Mean Corpuscular HGB Conc 34.1 g/dL (30.0-36.0); Mean Corpuscular Hemoglobin 31.5 pg (28.0-34.0); Mean Corpuscular Volume 92.6 fl (80-94); Mean Platelet Volume 10.4 fL (7.4-10.4); Monocytes # 1.1 10^3/uL (0.2-0.9); Monocytes % 10.4 %; Neutrophils # 7.61 10^3/uL (1.8-7.7); Neutrophils % 69.8 %; Nucleated Red Blood Cells % 0 %; Platelet Count 227 10^3/cmm (130-400); Red Blood Count 4.98 10^6/uL (4.1-5.3); Red Cell Distribution Width 12.7 % (12.1-15.1); White Blood Count 10.9 10^3/uL (4.0-10.0)
== END 2021-05-04 07:09 | disposition home or self-care (01) ==
LOC: RAD 07:11 → ONCMED 08:21
PROVIDERS: PCP Nurse Practitioner Family; Visit Provider Internal Medicine Medical Oncology
DX: C67.2 Malignant neoplasm of lateral wall of bladder (principal); Z79.899 Other long term (current) drug therapy
CPT/HCPCS: 36415; 85025; 93306

== ENCOUNTER 2021-05-12 08:01 | Outpatient (CLI) | payer MEDICARE, SELFPAY ==
[2021-05-12 08:31] LABS: Basophils # 0.1 10^3/uL (0.0-0.1); Basophils % 0.9 %; Eosinophils % 0.2 %; Hematocrit 43.3 % (42.0-52.0); Hemoglobin 15.1 g/dL (11.7-16.6); Lymphocytes # 2.2 10^3/uL (0.8-4.8); Lymphocytes % 26.7 %; Mean Corpuscular HGB Conc 34.9 g/dL (30.0-36.0); Mean Corpuscular Hemoglobin 31.9 pg (28.0-34.0); Mean Corpuscular Volume 91.4 fl (80-94); Mean Platelet Volume 9.6 fL (7.4-10.4); Monocytes # 0.8 10^3/uL (0.2-0.9); Monocytes % 9.8 %; Neutrophils # 4.87 10^3/uL (1.8-7.7); Neutrophils % 60.5 %; Nucleated Red Blood Cells % 0 %; Platelet Count 250 10^3/cmm (130-400); Red Blood Count 4.74 10^6/uL (4.1-5.3); Red Cell Distribution Width 13.1 % (12.1-15.1); White Blood Count 8.1 10^3/uL (4.0-10.0)
[2021-05-12] MEDS: sodium chloride 0.9% 250 ML 75 ML IV ×2 (08:40→13:40)
[2021-05-12 08:54] LABS: Alanine Aminotransferase 16 U/L (0-41); Albumin Level 3.6 g/dL (3.5-5.2); Alkaline Phosphatase 91 IU/L (40-130); Anion Gap 12.1 (5-19); Aspartate Amino Transferase 14 U/L (0-40); Blood Urea Nitrogen 22 mg/dL (6-20); Calcium 8.4 mg/dL (8.5-10.5); Carbon Dioxide 28 mmol/L (22-29); Chloride 105 mmol/L (98-107); Globulin 2.7 g/dL (1.3-4.6); Glomerular Filtration Rate 87.3 mL/min (90-130); Glucose 120 mg/dL (65-115); Osmolality Calculated 297 mOsm/kg (285-295); Potassium 4.1 mmol/L (3.5-5.1); Sodium 141 mmol/L (136-145); Total Bilirubin 0.2 mg/dL (0.15-1.2); Total Protein 6.3 g/dL (6.6-8.7)
[2021-05-12] MEDS: palonosetron 0.25 mg/5 mL SDV IV (10:17)
[2021-05-12] MEDS: famotidine 20 mg/2 mL INJ IVP (10:34)
[2021-05-12] MEDS: diphenhydrAMINE 50 mg/mL SDV 1mL 25 MG IV (10:35)
[2021-05-12] MEDS: fosaprepitant 150 MG in sodium chloride 0.9% 150 ML 300 MG IV (10:36)
[2021-05-12] MEDS: DOXORUBICIN IV (13:40)
[2021-05-12] MEDS: [UNRECOGNIZED DRUG - OTHER] IV (13:40)
[2021-05-12] MEDS: FUROsemide 10 mg/mL SDV 2mL 20 MG IV (13:52)
[2021-05-12] MEDS: potassium chloride 20 MEQ in sodium chloride 0.9% 500 ML 250 MEQ IV (13:54)
[2021-05-12] MEDS: pegfilgrastim 6 mg/0.6 mL Kit (onpro) SUBCUT (14:45)
== END 2021-05-12 08:02 | disposition home or self-care (01) ==
LOC: ONCMED 08:03
PROVIDERS: PCP Nurse Practitioner Family; Visit Provider Internal Medicine Medical Oncology
DX: Z51.11 Encounter for antineoplastic chemotherapy (principal); C67.3 Malignant neoplasm of anterior wall of bladder; M54.50 Low back pain, unspecified; G89.29 Other chronic pain; Z87.820 Personal history of traumatic brain injury; Z79.899 Other long term (current) drug therapy
CPT/HCPCS: 80053; 85025; 96366; 96367; 96372; 96375; 96377; 96411; 96413; 96417; 99215; J1100; J1200; J1453; J1940; J2469; J2505; J3475; J3480; J3490; J7030; J7040; J7050; J9000; J9060; J9260; J9360

== ENCOUNTER 2021-05-18 07:15 | Outpatient (CLI) | payer MEDICARE, SELFPAY ==
[2021-05-18 13:13] LABS: Basophils # 0.1 10^3/uL (0.0-0.1); Basophils % 1.2 %; Eosinophils % 0.2 %; Hematocrit 42.6 % (42.0-52.0); Hemoglobin 14.8 g/dL (11.7-16.6); Lymphocytes # 1.8 10^3/uL (0.8-4.8); Lymphocytes % 31.7 %; Mean Corpuscular HGB Conc 34.7 g/dL (30.0-36.0); Mean Corpuscular Hemoglobin 31.4 pg (28.0-34.0); Mean Corpuscular Volume 90.3 fl (80-94); Monocytes # 0.2 10^3/uL (0.2-0.9); Monocytes % 4.1 %; Neutrophils # 3.53 10^3/uL (1.8-7.7); Neutrophils % 62.4 %; Nucleated Red Blood Cells % 0 %; Platelet Count 307 10^3/cmm (130-400); Red Blood Count 4.72 10^6/uL (4.1-5.3); Red Cell Distribution Width 12.7 % (12.1-15.1); White Blood Count 5.7 10^3/uL (4.0-10.0)
[2021-05-18 13:40] LABS: Alanine Aminotransferase 20 U/L (0-41); Albumin Level 3.7 g/dL (3.5-5.2); Alkaline Phosphatase 68 IU/L (40-130); Anion Gap 16.8 (5-19); Aspartate Amino Transferase 14 U/L (0-40); Blood Urea Nitrogen 25 mg/dL (6-20); Calcium 8.7 mg/dL (8.5-10.5); Carbon Dioxide 24 mmol/L (22-29); Chloride 100 mmol/L (98-107); Globulin 2.7 g/dL (1.3-4.6); Glucose 111 mg/dL (65-115); Osmolality Calculated 289 mOsm/kg (285-295); Potassium 3.8 mmol/L (3.5-5.1); Sodium 137 mmol/L (136-145); Total Bilirubin 0.2 mg/dL (0.15-1.2); Total Protein 6.4 g/dL (6.6-8.7)
== END 2021-05-18 07:16 | disposition home or self-care (01) ==
LOC: ONCMED 07:15
PROVIDERS: Nurse Practitioner Family; PCP Nurse Practitioner Family; Visit Provider Internal Medicine Medical Oncology
DX: C67.3 Malignant neoplasm of anterior wall of bladder (principal); C67.4 Malignant neoplasm of posterior wall of bladder
CPT/HCPCS: 36415; 80053; 85025

== ENCOUNTER 2021-05-25 06:25 | Outpatient (RCR) | payer MEDICARE, SELFPAY ==
[2021-05-24 15:18] LABS: Basophils % 0.8 %; Eosinophils % 0.4 %; Hematocrit 37.9 % (42.0-52.0); Hemoglobin 13.1 g/dL (11.7-16.6); Lymphocytes # 2.1 10^3/uL (0.8-4.8); Lymphocytes % 40.6 %; Mean Corpuscular HGB Conc 34.6 g/dL (30.0-36.0); Mean Corpuscular Volume 89.8 fl (80-94); Mean Platelet Volume 10.4 fL (7.4-10.4); Monocytes # 0.7 10^3/uL (0.2-0.9); Monocytes % 13.9 %; Neutrophils # 2.23 10^3/uL (1.8-7.7); Neutrophils % 44.1 %; Nucleated Red Blood Cells % 0 %; Platelet Count 214 10^3/cmm (130-400); Red Blood Count 4.22 10^6/uL (4.1-5.3); White Blood Count 5.1 10^3/uL (4.0-10.0)
[2021-05-24 15:37] LABS: Alanine Aminotransferase 15 U/L (0-41); Albumin Level 3.9 g/dL (3.5-5.2); Alkaline Phosphatase 62 IU/L (40-130); Anion Gap 17.8 (5-19); Aspartate Amino Transferase 13 U/L (0-40); Blood Urea Nitrogen 18 mg/dL (6-20); Calcium 8.3 mg/dL (8.5-10.5); Carbon Dioxide 25 mmol/L (22-29); Chloride 103 mmol/L (98-107); Globulin 2.7 g/dL (1.3-4.6); Glomerular Filtration Rate 87.3 mL/min (90-130); Glucose 99 mg/dL (65-115); Osmolality Calculated 296 mOsm/kg (285-295); Potassium 3.8 mmol/L (3.5-5.1); Sodium 142 mmol/L (136-145); Total Bilirubin 0.2 mg/dL (0.15-1.2); Total Protein 6.6 g/dL (6.6-8.7)
[2021-05-25] MEDS: sodium chloride 0.9% 250 ML 75 ML IV (09:28)
--- NOTE | 2021-05-25 10:11 | ONC FU_ITS ---
Dr. Moctezuma Patient Follow-Up Note Patient: Bill Quintero Unit #: [id number]: 1965 Dicatated By: Benito Moctezuma M.D.Date of Visit:May 25, 2021 Onc Med Follow-up/Prog Note Chief Complaint: Bladder cancer. History of Present Illness: This is a 56-year-old man with recently diagnosed bladder cancer, presumed to be muscle invasive, by clinical evaluation stage II (T2b, N0, M0). Sometime around December 2020 he began having more frequent urination, and he subsequently developed hematuria. On 03/26/2021 he presented to the emergency room with a 2-day history of recurrent hematuria with clots. Renal ultrasound showed a mass within the urinary bladder which was suspicious for bladder tumor. There was associated left hydronephrosis. He was then seen by Dr. Stallings and further evaluation with CT scans of the chest, abdomen, and pelvis on 04/13/2021 showed a large mass centered in the left urinary bladder measuring at least 5.6 x 2.3 cm. There was associated obstruction of the left ureter and there was marked hydroureteronephrosis. A nonenhancing solid mass was noted in the upper pole of the left kidney measuring 2.5 x 2.5 cm, possibly representing complex cyst. There was no associated adenopathy or other evidence of metastatic disease. On 04/18/2021 he underwent cystoscopy with TURBT. He was noted to have a very large invasive high-grade appearing urothelial cancer extending from the left bladder wall anteriorly and posteriorly to involve the left trigone. Multiple biopsies were obtained, as the tumor did not appear to be amenable to complete resection. Pathology showed high-grade invasive papillary urothelial carcinoma with detrussor muscle invasion identified. With those findings, he was recommended to proceed with neoadjuvant chemotherapy with the dose dense MVAC regimen. His medical history is otherwise significant for chronic back pain and for history of head injury in 2009. He has had no prior surgeries. He has a history of smoking 2 packs of cigarettes daily beginning at age 17. He quit smoking 10 years ago, but he had subsequently chewed tobacco. INTERIM HISTORY: He began cycle 1 of dose dense MVAC on 04/27/2021. He had some minimal nausea following that treatment. No other significant side effects. He proceeded with cycle 2 on 05/12/2021. He is seen for a follow-up visit. He has been feeling good generally. He has good energy and activity tolerance. ECOG score is 0. His appetite is good. He has gained weight. He has no fever or night sweats. He has not had sore mouth or throat. He does not complain of cough, and he has not been having shortness of breath or chest pain. He has had no further nausea. Bowel function has been okay. He has noted significant improvement in his bladder symptoms. He has no significant joint or bone pain. He does not complain of headache or dizziness, and he has no focal neurologic symptoms. Medications: This patient reports not taking external medications. Allergies: No Known Allergies. Vital Signs: Performed on May 25, 2021 09:01 Height - 70.00 in Weight - 183.0 lbs (HIGH) BSA - 2.01 sq.m BMI - 26.26 Temperature - 97.5 F (LOW) Pulse - 91 /min Respiration - 16 /min BP - 151/76 mm(hg) (HIGH) O2 Sat - 99 % Pain - 0 Fatigue - 0 Physical Examination: Constitutional - He looks good generally, Eyes - Sclerae nonicteric. Conjunctivae clear, ENMT - No lesions noted in the oral cavity, Hematologic/Lymphatic - No cervical, clavicular, or axillary adenopathy, Respiratory - Lungs sound clear with some decrease in air movement bilaterally, Cardiovascular - Heart rhythm is regular. There is no murmur, gallop, or rub noted, Abdomen - Soft. Liver and spleen are not enlarged. There is no abdominal mass or ascites noted and there is no inguinal adenopathy, Extremities - No edema, Neurologic - No focal neurologic deficits noted. Lab/Imaging: CBC shows hemoglobin 13.1 g, white blood cell count 5100, and platelet count 214,000. Comprehensive metabolic profile shows normal renal function with BUN 18 and creatinine 0.9 mg/dL. Bilirubin and liver enzymes are normal. Problem List: 1. Locally advanced, high-grade urothelial cancer involving the left bladder wall, by clinical evaluation stage II (T2b, N0, M0). 2. History of head injury in 2009. 3. Chronic back pain. Problems Addressed with this Encounter and Plan: Patient with clinical evidence of locally advanced, high-grade urothelial cancer involving the left bladder wall, by clinical evaluation stage II (T2b, N0, M0). He underwent cystoscopy with TURBT on 04/18/2021. Pathology confirmed high-grade papillary urothelial carcinoma with muscle invasion. With those findings, he was recommended to proceed with neoadjuvant chemotherapy with the dose dense MVAC regimen. He began cycle 1 of dose dense MVAC on 04/27/2021. Side effects were limited to just mild nausea. He proceeded with cycle 2 on 05/12/2021. He continues to tolerate the chemotherapy extremely well. He will continue now with cycle 3 of dose dense MVAC. Dosages remain the same. He returns in 2 weeks for his 4th and final cycle of treatment. He will then follow-up with Dr. Eason in [place]. Signed By: Benito Moctezuma M.D. <<Signature on File>>
[2021-05-25] MEDS: famotidine 20 mg/2 mL INJ IVP (10:40)
[2021-05-25] MEDS: diphenhydrAMINE 50 mg/mL SDV 1mL 25 MG IV (10:42)
[2021-05-25] MEDS: palonosetron 0.25 mg/5 mL SDV IV (10:44)
[2021-05-25] MEDS: fosaprepitant 150 MG in sodium chloride 0.9% 150 ML 300 MG IV (11:00)
[2021-05-25] MEDS: [UNRECOGNIZED DRUG - OTHER] IV (13:24)
[2021-05-25] MEDS: DOXORUBICIN IV (13:24)
[2021-05-25] MEDS: FUROsemide 10 mg/mL SDV 2mL 20 MG IV (13:36)
[2021-05-25] MEDS: potassium chloride 20 MEQ in sodium chloride 0.9% 500 ML 255 MEQ IV (13:37)
[2021-05-25] MEDS: pegfilgrastim 6 mg/0.6 mL Kit (onpro) SUBCUT (14:40)
== END 2021-06-03 23:59 | disposition home or self-care (01) ==
LOC: ONCMED 06:25
PROVIDERS: PCP Nurse Practitioner Family; Visit Provider Internal Medicine Medical Oncology
DX: Z51.11 Encounter for antineoplastic chemotherapy (principal); C67.3 Malignant neoplasm of anterior wall of bladder; M54.50 Low back pain, unspecified; G89.29 Other chronic pain; Z79.899 Other long term (current) drug therapy; Z87.820 Personal history of traumatic brain injury
CPT/HCPCS: 36415; 80053; 85025; 96367; 96372; 96375; 96377; 96411; 96413; 96417; 99215; J1100; J1200; J1453; J1940; J2469; J2505; J3475; J3480; J3490; J7030; J7040; J7050; J9000; J9060; J9260; J9360

== ENCOUNTER 2021-06-14 06:19 | Outpatient (RCR) | payer MEDICARE, SELFPAY ==
[2021-06-09] MEDS: sodium chloride 0.9% 250 ML 75 ML IV ×2 (08:34→13:54)
[2021-06-09 08:39] LABS: Basophils # 0.1 10^3/uL (0.0-0.1); Basophils % 0.9 %; Eosinophils % 0.3 %; Hematocrit 42.4 % (42.0-52.0); Hemoglobin 14.5 g/dL (11.7-16.6); Lymphocytes % 34.6 %; Mean Corpuscular HGB Conc 34.2 g/dL (30.0-36.0); Mean Corpuscular Hemoglobin 31.5 pg (28.0-34.0); Mean Corpuscular Volume 92.2 fl (80-94); Monocytes # 0.8 10^3/uL (0.2-0.9); Monocytes % 14.4 %; Neutrophils # 2.81 10^3/uL (1.8-7.7); Neutrophils % 48.3 %; Nucleated Red Blood Cells % 0 %; Platelet Count 196 10^3/cmm (130-400); Red Cell Distribution Width 14.6 % (12.1-15.1); White Blood Count 5.8 10^3/uL (4.0-10.0)
[2021-06-09 09:03] LABS: Alanine Aminotransferase 15 U/L (0-41); Alkaline Phosphatase 78 IU/L (40-130); Aspartate Amino Transferase 20 U/L (0-40); Blood Urea Nitrogen 32 mg/dL (6-20); Calcium 9.4 mg/dL (8.5-10.5); Carbon Dioxide 24 mmol/L (22-29); Chloride 103 mmol/L (98-107); Globulin 2.6 g/dL (1.3-4.6); Glomerular Filtration Rate 87.3 mL/min (90-130); Glucose 115 mg/dL (65-115); Osmolality Calculated 298 mOsm/kg (285-295); Sodium 140 mmol/L (136-145); Total Bilirubin 0.3 mg/dL (0.15-1.2); Total Protein 6.6 g/dL (6.6-8.7)
[2021-06-09 09:06] LABS: Anion Gap 17.1 (5-19); Potassium 4.1 mmol/L (3.5-5.1)
[2021-06-09] MEDS: diphenhydrAMINE 50 mg/mL SDV 1mL 25 MG IV (09:45)
[2021-06-09] MEDS: famotidine 20 mg/2 mL INJ IVP (09:50)
[2021-06-09] MEDS: palonosetron 0.25 mg/5 mL SDV IV (09:52)
[2021-06-09] MEDS: fosaprepitant 150 MG in sodium chloride 0.9% 150 ML 300 MG IV (10:15)
[2021-06-09] MEDS: [UNRECOGNIZED DRUG - OTHER] IV (11:15)
[2021-06-09] MEDS: DOXORUBICIN IV (11:15)
[2021-06-09] MEDS: FUROsemide 10 mg/mL SDV 2mL 20 MG IV (13:30)
[2021-06-09] MEDS: potassium chloride 20 MEQ in sodium chloride 0.9% 500 ML 255 MEQ IV (13:32)
[2021-06-09] MEDS: pegfilgrastim 6 mg/0.6 mL Kit (onpro) SUBCUT (13:53)
[2021-06-14 10:58] LABS: Basophils % 0.1 %; Eosinophils % 0.1 %; Hematocrit 38.9 % (42.0-52.0); Hemoglobin 13.2 g/dL (11.7-16.6); Lymphocytes # 1.3 10^3/uL (0.8-4.8); Lymphocytes % 8.6 %; Mean Corpuscular HGB Conc 33.9 g/dL (30.0-36.0); Mean Corpuscular Hemoglobin 31.7 pg (28.0-34.0); Mean Corpuscular Volume 93.5 fl (80-94); Mean Platelet Volume 10.3 fL (7.4-10.4); Monocytes # 0.3 10^3/uL (0.2-0.9); Monocytes % 2.2 %; Neutrophils # 13.45 10^3/uL (1.8-7.7); Neutrophils % 86.7 %; Nucleated Red Blood Cells % 0 %; Platelet Count 170 10^3/cmm (130-400); Red Blood Count 4.16 10^6/uL (4.1-5.3); Red Cell Distribution Width 14.9 % (12.1-15.1); White Blood Count 15.5 10^3/uL (4.0-10.0)
[2021-06-14 11:17] LABS: Alanine Aminotransferase 13 U/L (0-41); Alkaline Phosphatase 166 IU/L (40-130); Aspartate Amino Transferase 13 U/L (0-40); Blood Urea Nitrogen 29 mg/dL (6-20); Carbon Dioxide 28 mmol/L (22-29); Chloride 102 mmol/L (98-107); Globulin 2.3 g/dL (1.3-4.6); Glomerular Filtration Rate 87.3 mL/min (90-130); Glucose 122 mg/dL (65-115); Osmolality Calculated 297 mOsm/kg (285-295); Sodium 140 mmol/L (136-145); Total Bilirubin 0.3 mg/dL (0.15-1.2); Total Protein 6.3 g/dL (6.6-8.7)
[2021-06-14 11:57] LABS: Slide Review Slide Review Perform
== END 2021-07-04 23:59 | disposition home or self-care (01) ==
LOC: ONCMED 06:19
PROVIDERS: PCP Nurse Practitioner Family; Visit Provider Internal Medicine Medical Oncology
DX: Z51.11 Encounter for antineoplastic chemotherapy (principal); C67.3 Malignant neoplasm of anterior wall of bladder; M54.50 Low back pain, unspecified; G89.29 Other chronic pain; Z87.820 Personal history of traumatic brain injury; Z79.899 Other long term (current) drug therapy
CPT/HCPCS: 36415; 80053; 85025; 96367; 96372; 96375; 96377; 96411; 96413; 96417; 99215; J1100; J1200; J1453; J1940; J2469; J2506; J3475; J3480; J3490; J7030; J7040; J7050; J9000; J9060; J9260; J9360

== ENCOUNTER 2021-09-08 11:53 | Outpatient (CLI) | payer MEDICARE, SELFPAY ==
--- NOTE | 2021-09-08 12:00 | FL_ITS ---
WS: [id number] FL cystogram [id number] REASON FOR EXAM: Evaluation of neobladder. FLUOROSCOPY TIME: 2min [id number] # OF SPOT FILMS: 10 FINDINGS: Under fluoroscopic guidance with the patient supine, 120 mL of water-soluble contrast was injected th rough the catheter, transabdominal within the neobladder. Contrast filled the neobladder without fluoroscopic evidence of extravasation. The tube was clamped a nd multiple spot films of the pelvis obtained in AP and steep oblique projections. No extravasation o f contrast from the neobladder was identified. Nearly all the contrast was aspirated. Follow-up imaging of the pelvis demonstrated no contrast extra vasation persisting outside the neobladder. FL/FL cystogram [id number] IMPRESSION: No extravasation was identified from the neobladder.
== END 2021-09-08 11:54 | disposition home or self-care (01) ==
LOC: RAD 11:59
PROVIDERS: PCP Nurse Practitioner Family; Visit Provider Urology
DX: C67.8 Malignant neoplasm of overlapping sites of bladder (principal); N13.30 Unspecified hydronephrosis
CPT/HCPCS: 74430

== ENCOUNTER → 2021-09-21 13:20 | Outpatient (BNVA) | payer MEDICARE, SELFPAY | PROVIDERS: PCP Nurse Practitioner Family; Visit Provider Surgery | DX: Z95.828 Presence of other vascular implants and grafts (principal) | CPT/HCPCS: 99213 ==

== ENCOUNTER 2021-09-27 06:39 | Day surgery (SDC) | payer MEDICARE, SELFPAY ==
[2021-09-27 06:57] VITALS: BP 144/84; PULSE 97; RESP 18; TEMP 36.6; O2SAT 99
[2021-09-27] MEDS: sodium chloride 0.9% 1,000 ML 30 ML IV (07:11)
--- NOTE | 2021-09-27 07:25 | ANES.PREANE2 ---
Pre-Anesthetic Assessment Height/Weight: Height 1.78 m Weight 84.822 kg Temp Pulse Resp BP Pulse Ox 98 F 97 18 144/84 99 09/27/21 06:57 09/27/21 06:57 09/27/21 06:57 09/27/21 06:57 09/27/21 06:57 Preop Diagnosis: Bladder cancer Operation Date: 09/27/21 08:10 Proposed Procedures p Portacath removal [id number](Not Applicable) - Blair Keith MD Familial anesthetic complications: None Was Beta Lucho taken within 24 hours: N/A Was Clonidine taken within 24 hours: N/A Last intake: Intake Last Liquid Date 09/26/21 Last Liquid Time 20:00 Last Solid Date 09/26/21 Last Solid Time 20:00 Social No alcohol and No tobacco Exam alert, oriented x 3, clear to auscultation bilaterally and regular rate & rhythm Airway Submandibular: within normal limits Cervical ROM: within normal limits Mallampati: Class I Dentition: false Pulmonary None reported CV/HEM None reported METS > 4 TTE 05/2021 ?CONCLUSIONS ?1. Normal left ventricular size, systolic function and wall ?thickness, with no regional wall motion abnormalities. Left ?ventricular ejection fraction is estimated at 60 %. Grade I ?diastolic dysfunction (abnormal relaxation filling pattern), ?normal to mildly elevated filling pressures. ?2. Normal right ventricular size and systolic function. ?3. Normal pulmonary artery pressure. ?4.? No prior similar studies to compare. Bladder cancer Hydronephrosis hx Hepatic None reported GI None reported Metabolic None reported Musc/skel None reported Neuropsych None reported Anesthetic Plan ASA status: 2 Anesthesia: Anesthesia Evaluation, General and MAC Other: I discussed with the patient risks, goals, and benefits of MAC and general anesthesia. We discussed spectrum of MAC anesthesia including conversion to general as well as possibility of recall of intraoperative stimuli including discomfort/pain. Patient agrees to proceed with MAC. Risk of > 500 ml blood loss (7ml/kg in children): No Medications/Allergies Home Medications Medication Instructions Recorded Confirmed Last Taken Type sildenafil 100 mg tablet 100 mg PO DAILY PRN #20 tab 09/13/21 09/27/21 09/26/21 Rx Allergies Allergy/AdvReac Type Severity Reaction Status Date / Time No Known Allergies Allergy Verified 09/27/21 06:53 Current Medications Generic Name Dose Route Start Last Admin Trade Name Malinda PRN Reason Stop Dose Admin Sodium Chloride 1,000 mls @ 30 mls/hr 09/27/21 07:00 09/27/21 07:11 Sodium Chloride 0.9% IV 09/28/21 06:59 30 mls/hr .Q24H APRYL Administration PFSH Anesthesia Medical History Bladder cancer 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 Chronic back pain Erectile dysfunction after radical cystectomy Hydronephrosis, left Secondary to obstructing bladder cancer Primary malignant neoplasm of overlapping sites of bladder Family History Father , AT AGE 55 CAD (coronary artery disease) Hypertension Heart attack Mother , AT AGE 73 Cancer COLON Social History Smoking and tobacco status: former smoker Alcohol intake: current Alcohol intake frequency: holidays/special occasions only Marital status: / Number of children: 3 Current occupational status: disabled History of recent travel: No Data Anesthesia Cardiac Studies: Echocardiogram 05/04/21
--- NOTE | 2021-09-27 08:11 | W.PM.OPSUD ---
Surgery/Procedure H&P Update DATE OF PROCEDURE: September 27, 2021 DATE H&P PERFORMED: 09/21/21 H&P UPDATE INFORMATION: I have reviewed H&P completed within last 30 days, I have examined patient prior to procedure and No changes to prior documentation PREOP DIAGNOSIS: Bladder cancer PRIMARY INDICATION FOR PROCEDURE: The same PLANNED PROCEDURE: Operation Date: 09/27/21 08:10 Proposed Procedures p Portacath removal [id number](Not Applicable) - Bliar Keith MD
[2021-09-27] MEDS: lidocaine 2% INJ 20 mL INJECTION (08:45)
--- NOTE | 2021-09-27 08:50 | P.OP_ITS ---
Operative Report Date of procedure: September 27, 2021 Pre-op diagnosis: Preop Diagnosis Bladder cancer Post-op diagnosis: The same Procedure done: Explantation of right upper chest PowerPort Surgeon: Blair Keith MD Airplane Rental Clerk: cardiac catheterization technologist Sanjuanita Circulating nurse Candace Anesthesia: MAC (Dr. De) Estimated blood loss (mL): 5 IV fluids: 450 Procedure: After identifying the patient in the holding area, informed consent per chart ,patient was then transferred to the operative suite, was placed in supine position, IV propofol was infused by the anesthesia provider and both arms were tucked, prep and drape of right upper chest region was done usual sterile technique. Time-out was done verifying the patient's name/date of /planned procedure and destination after the procedure, all were in agreement. I started by injection of lidocaine 2% at the site of the planned incision started by an transverse incision including the previous scar of the catheter placement located at the right upper chest, after dissection at the site of exit the PowerPort was then explanted easily, at this point the catheter was removed at the same time direct pressure was applied at the site of the right subclavian vein stick to prevent bleeding for at least 5-minutes. Thorough irrigation of the right upper chest PowerPort was done followed by hemostasis.Closure using 3/0 Vicryl as subdermal sutures was achieved , followed by 4-0 Monocryl to approximate skin edges. Surgical glue followed by pressure dressing Patient tolerated the procedure well, count of instruments, needles and sponges were completed at the end of the procedure.And then patient was transferred to the recovery area in stable condition. I Was present for the whole entire procedure
[2021-09-27 09:10] VITALS: BP 123/81; PULSE 75; RESP 18; TEMP 36.8; O2SAT 98
[2021-09-27 09:18] VITALS: BP 116/79; PULSE 75; RESP 17; TEMP 36.7; O2SAT 98
[2021-09-27 09:29] VITALS: BP 114/74; PULSE 74; RESP 18; TEMP 36.6; O2SAT 100
[2021-09-27 09:54] VITALS: BP 108/70; PULSE 74; RESP 18; TEMP 36.6; O2SAT 98
--- NOTE | 2021-09-27 17:43 | ANE.PACU2 ---
Inpatient post-anesthesia follow up: Airway intact: Yes Vital signs: Temperature 97.8 F Pulse Rate 74 Respiratory Rate 18 Blood Pressure 108/70 Pulse Oximetry 98 Oxygen Delivery Me thod Room Air Oxygen Flow Rate Fraction of Inspir ed Oxygen Hydration adequate: Yes Nausea and vomiting: No Pain level: 1 Mental status: Baseline
== END 2021-09-27 10:09 | disposition home or self-care (01) ==
PROVIDERS: PCP Nurse Practitioner Family; Visit Provider Surgery
PROC: (CPT 36589; principal; 2021-09-27 08:00)
DX: Z85.51 Personal history of malignant neoplasm of bladder (principal); Z87.891 Personal history of nicotine dependence
CPT/HCPCS: 36589; J0690; J2250; J2704; J3010; J7030

== ENCOUNTER 2021-12-14 09:43 | Outpatient (CLI) | payer MEDICARE, SELFPAY ==
--- NOTE | 2021-12-14 10:00 | US_ITS ---
WS: [id number] RENAL ULTRASOUND HISTORY: MALIGNANT NEOPLASM OF OVERLAPPING SITES OF BLADDER COMPARISON: 03/26/2021 TECHNIQUE: 2-D and color Doppler imaging of the kidney submitted. Right kidney: 12.3 cm x 5.9 cm x 5.4 cm. Normal size kidney with normal echogenicity. There is very small amount of fluid distending the renal pelvis. No solid mass identified. Left kidney: 13.5 cm x 6.8 cm x 4.0 cm. Normal size kidney. Exophytic cyst superior pole measures 3.2 x 3.1 x 2.8 cm. There is mild dilatatio n of the renal pelvis. Aorta: Mild atherosclerosis and ectasia. Urinary Bladder: Minimally well distended urinary bladder. Mild thickening of the folds. The previous ly described mass within the bladder on 03/26/2021 is no longer evident. US/US renal BI* [id number] IMPRESSION: 1. Mild residual LEFT hydronephrosis. Slightly improved since 03/26/2021. 2. Very minimal RIGHT hydronephrosis. 3. LEFT renal cyst. 4. Previously described vascular mass within the urinary bladder is not identi fied on today's ultrasound. Bladder wall is diffusely and mildly thickened.
--- NOTE | 2021-12-14 10:21 | XRR_ITS ---
PROCEDURE INFORMATION: Exam: XR Chest Exam date and time: 12/14/2021 10:25 AM Age: 56 years old Clinical indication: Condition or disease; Other: Bladder cancer; Additional info: Malignant neoplasm of overlapping sites of bladder, XR chest @ [facility] on 12/15/21 @ 12:15. Appt to follow TECHNIQUE: Imaging protocol: Radiologic exam of the chest. Views: Frontal and lateral upright, 2 views. COMPARISON: CR XR chest 1V portable [id number] 04/26/2021 9:17 AM FINDINGS: Lungs: The lungs are clear bilaterally. The pulmonary vasculature is normal. Pleural spaces: No pleural effusion. No pneumothorax. Heart/Mediastinum: The heart is normal in size and contour. Mediastinum: Stable. Vasculature: Mild aortic arch atherosclerotic calcification without ectasia. Bones/joints: Slight rightward thoracic spinal curvature. XR/XR chest 2V* [id number] IMPRESSION: No acute cardiopulmonary abnormality identified.
== END 2021-12-14 09:44 | disposition home or self-care (01) ==
LOC: RAD 09:48
PROVIDERS: PCP Nurse Practitioner Family; Visit Provider Urology
DX: C67.8 Malignant neoplasm of overlapping sites of bladder (principal); N13.30 Unspecified hydronephrosis; N28.1 Cyst of kidney, acquired
CPT/HCPCS: 71046; 76770

== ENCOUNTER 2021-12-15 11:21 | Outpatient (CLI) | payer MEDICARE, SELFPAY ==
[2021-12-15 13:05] LABS: Basophils % 0.2 %; Eosinophils % 0.5 %; Hemoglobin 12.8 g/dL (11.7-16.6); Lymphocytes # 1.9 10^3/uL (0.8-4.8); Lymphocytes % 21.7 %; Mean Corpuscular Hemoglobin 29.6 pg (28.0-34.0); Mean Corpuscular Volume 92.6 fl (80-94); Monocytes # 0.9 10^3/uL (0.2-0.9); Monocytes % 10.8 %; Neutrophils # 5.74 10^3/uL (1.8-7.7); Neutrophils % 66.5 %; Nucleated Red Blood Cells % 0 %; Platelet Count 282 10^3/cmm (130-400); Red Blood Count 4.32 10^6/uL (4.1-5.3); Red Cell Distribution Width 14.3 % (12.1-15.1); White Blood Count 8.6 10^3/uL (4.0-10.0)
[2021-12-15 13:30] LABS: Anion Gap 15.3 (5-19); Blood Urea Nitrogen 19 mg/dL (6-20); Calcium 9.1 mg/dL (8.5-10.5); Carbon Dioxide 28 mmol/L (22-29); Chloride 99 mmol/L (98-107); Glomerular Filtration Rate 57.1 mL/min (90-130); Glucose 91 mg/dL (65-115); Osmolality Calculated 288 mOsm/kg (285-295); Potassium 4.3 mmol/L (3.5-5.1); Sodium 138 mmol/L (136-145)
== END 2021-12-15 11:22 | disposition home or self-care (01) ==
PROVIDERS: PCP Nurse Practitioner Family; Visit Provider Urology
DX: C67.8 Malignant neoplasm of overlapping sites of bladder (principal); N52.32 Erectile dysfunction following radical cystectomy; Z98.890 Other specified postprocedural states
CPT/HCPCS: 36415; 51798; 80048; 81003; 85025; 99213

== ENCOUNTER → 2022-01-12 07:12 | Outpatient (BNVA) | payer MEDICARE, SELFPAY | PROVIDERS: PCP Nurse Practitioner Family; Visit Provider Urology | DX: C67.8 Malignant neoplasm of overlapping sites of bladder (principal); N52.32 Erectile dysfunction following radical cystectomy | CPT/HCPCS: 99213 ==

== ENCOUNTER 2022-04-13 06:59 | Outpatient (CLI) | payer MEDICARE, SELFPAY ==
--- NOTE | 2022-04-13 07:09 | XR_ITS ---
WS: [id number] Chest 2 views, 04/13/2022 Clinical Data: Bladder Cancer Comparison: PA and lateral chest, 12/14/2021 Findings: No nodules, masses or effusions are seen. The heart is normal. The pulmonary vascularity is not increased. No pneumonia or pneumothorax is seen. XR/XR chest 2V* [id number] Impression: Negative chest.
[2022-04-13 08:23] LABS: Alanine Aminotransferase 13 U/L (0-41); Albumin Level 3.9 g/dL (3.5-5.2); Alkaline Phosphatase 68 U/L (40-130); Aspartate Amino Transferase 15 U/L (0-40); Blood Urea Nitrogen 20 mg/dL (6-20); Carbon Dioxide 29 mmol/L (22-29); Chloride 103 mmol/L (98-107); Globulin 3.1 g/dL (1.3-4.6); Glomerular Filtration Rate 62.4 mL/min (90-130); Glucose 95 mg/dL (65-115); Osmolality Calculated 292 mOsm/kg (285-295); Sodium 140 mmol/L (136-145); Total Bilirubin 0.5 mg/dL (0.15-1.2)
[2022-04-13 08:43] LABS: Basophils % 0.5 %; Eosinophils # 0.1 10^3/uL (0.0-0.8); Eosinophils % 1.2 %; Hematocrit 45.6 % (42.0-52.0); Hemoglobin 15.5 g/dL (11.7-16.6); Lymphocytes # 1.8 10^3/uL (0.8-4.8); Lymphocytes % 27.1 %; Mean Corpuscular Hemoglobin 31.8 pg (28.0-34.0); Mean Corpuscular Volume 93.4 fl (80-94); Mean Platelet Volume 9.5 fL (7.4-10.4); Monocytes # 0.7 10^3/uL (0.2-0.9); Monocytes % 10.2 %; Neutrophils # 3.99 10^3/uL (1.8-7.7); Neutrophils % 60.7 %; Nucleated Red Blood Cells % 0 %; Platelet Count 272 10^3/cmm (130-400); Red Blood Count 4.88 10^6/uL (4.1-5.3); Red Cell Distribution Width 13.2 % (12.1-15.1); White Blood Count 6.6 10^3/uL (4.0-10.0)
== END 2022-04-13 07:00 | disposition home or self-care (01) ==
LOC: RAD 07:00
PROVIDERS: PCP Nurse Practitioner Family; Visit Provider Urology
DX: C67.8 Malignant neoplasm of overlapping sites of bladder; N52.32 Erectile dysfunction following radical cystectomy; Z98.890 Other specified postprocedural states
CPT/HCPCS: 36415; 71046; 80053; 81003; 85025; 99213

== ENCOUNTER 2022-07-11 06:22 | Outpatient (CLI) | payer MEDICARE, SELFPAY ==
--- NOTE | 2022-07-11 07:00 | US_ITS ---
WS: [id number] RENAL ULTRASOUND HISTORY: Bladder Cancer COMPARISON: 12/14/2021 TECHNIQUE: 2-D and color Doppler imaging of the kidney submitted. Right kidney: 11.0 cm x 4.9 cm x 6.0 cm. Normal echogenicity with no hydronephrosis or mass. Left kidney: 12.2 cm x 4.1 cm x 5.7 cm. Kidney is normal size. Hypoechoic mass from the superior pole is been previously described as a cyst. Due to its position is is difficult to completely clear of echoes. This mass measures 4.4 x 3.2 cm a nd measures just slightly greater than on the prior study of 04/13/2021. No significant dilatation of the renal pelvis. The hydronephrosis described on 12/14/2021 is not apparent today. There is very min imal dilatation of the central renal pelvis to 1.1 cm. Aorta: Normal. Urinary Bladder: Bladder is collapsed. There is diffuse bladder wall thickening. Discrete solid mass is not reidentified. US/US renal BI* [id number] IMPRESSION: 1. Improved LEFT hydronephrosis. Very minimal dilatation of the central renal pelvis to 1.1 cm. 2. No RIGHT hydronephrosis. 3. Hypoechoic mass superior pole LEFT kidney slightly increased in size. This has been described as a cyst on prior studies. Not as well-visualized today due to position and there are some residual low-level echoes. Probably a complex c yst. 4. Mild bladder wall thickening in a nondistended bladder. Recurrent mass is n ot identified.
--- NOTE | 2022-07-11 07:40 | XRR_ITS ---
PROCEDURE INFORMATION: Exam: XR Chest Exam date and time: 07/11/2022 7:43 AM Age: 57 years old Clinical indication: Condition or disease; Other: Bladder cancer; Additional info: Bladder cancer, renal US with no biopsy/cxr cmp/cbc on 07/11/21 @ 0700 appointment to follow TECHNIQUE: Imaging protocol: Radiologic exam of the chest. Views: 2 views. COMPARISON: CR XR chest 2V* [id number] 04/13/2022 7:11 AM FINDINGS: Lungs: No focal airspace disease. Pleural spaces: Unremarkable. No pleural effusion. No pneumothorax. Heart/Mediastinum: Cardiomediastinal silhouette is within normal limits. Bones/joints: Unremarkable. XR/XR chest 2V* [id number] IMPRESSION: No acute cardiopulmonary abnormality.
[2022-07-11 08:10] LABS: Alanine Aminotransferase 12 U/L (0-41); Albumin Level 4.2 g/dL (3.5-5.2); Alkaline Phosphatase 67 U/L (40-130); Aspartate Amino Transferase 15 U/L (0-40); Blood Urea Nitrogen 28 mg/dL (6-20); Calcium 8.9 mg/dL (8.5-10.5); Carbon Dioxide 27 mmol/L (22-29); Chloride 106 mmol/L (98-107); Globulin 2.7 g/dL (1.3-4.6); Glomerular Filtration Rate 62.4 mL/min (90-130); Glucose 101 mg/dL (65-115); Osmolality Calculated 300 mOsm/kg (285-295); Sodium 142 mmol/L (136-145); Total Bilirubin 0.2 mg/dL (0.15-1.2); Total Protein 6.9 g/dL (6.6-8.7)
[2022-07-11 08:11] LABS: Anion Gap 13.1 (5-19); Potassium 4.1 mmol/L (3.5-5.1)
[2022-07-11 08:46] LABS: Basophils # 0.1 10^3/uL (0.0-0.1); Basophils % 0.7 %; Eosinophils # 0.3 10^3/uL (0.0-0.8); Eosinophils % 3.6 %; Hematocrit 43.2 % (42.0-52.0); Lymphocytes # 2.1 10^3/uL (0.8-4.8); Lymphocytes % 31.1 %; Mean Corpuscular HGB Conc 34.7 g/dL (30.0-36.0); Mean Corpuscular Hemoglobin 32.3 pg (28.0-34.0); Mean Corpuscular Volume 92.9 fl (80-94); Mean Platelet Volume 9.7 fL (7.4-10.4); Monocytes # 0.7 10^3/uL (0.2-0.9); Neutrophils # 3.74 10^3/uL (1.8-7.7); Neutrophils % 54.3 %; Nucleated Red Blood Cells % 0 %; Platelet Count 239 10^3/cmm (130-400); Red Blood Count 4.65 10^6/uL (4.1-5.3); White Blood Count 6.9 10^3/uL (4.0-10.0)
== END 2022-07-11 06:23 | disposition home or self-care (01) ==
PROVIDERS: PCP Nurse Practitioner Family; Visit Provider Urology
DX: C67.9 Malignant neoplasm of bladder, unspecified (principal)
CPT/HCPCS: 36415; 71046; 76770; 80053; 81003; 85025; 99213

== ENCOUNTER 2022-08-15 11:59 | Observation (INO) | payer MEDICARE, SELFPAY ==
[2022-08-15] VITALS (17 sets, daily range): BP systolic 111–146; BP diastolic 67–96; PULSE 60–100; RESP 14–20; TEMP 36.4–37.3; O2SAT 95–99; BMI 26.5
--- NOTE | 2022-08-15 12:16 | XRR_ITS ---
PROCEDURE INFORMATION: Exam: XR Right Tibia and Fibula Exam date and time: 08/15/2022 12:35 PM Age: 57 years old Clinical indication: Injury or trauma; Other: Logrolled and pinched his right leg below his knee in between the log in the stump. Blunt trauma; Lower leg; Additional info: Trauma, obv deformity TECHNIQUE: Imaging protocol: Radiologic exam of the right tibia and fibula. Views: 2 views. COMPARISON: No relevant prior studies available. FINDINGS: Bones/joints: Displaced oblique comminuted midshaft fracture of the tibia. An oblique displaced retracted fracture of the proximal fibula Soft tissues: Unremarkable XR/XR tibia fibula RT 2V [id number] IMPRESSION: 1. Comminuted displaced retracted fracture of the tibia 2. Oblique displaced fracture proximal fibula
--- NOTE | 2022-08-15 12:17 | XRR_ITS ---
PROCEDURE INFORMATION: Exam: XR Chest Exam date and time: 08/15/2022 12:34 PM Age: 57 years old Clinical indication: Cough and dyspnea; Patient HX: Logrolled and pinched his right leg below his knee in between the log in the stump. ; Additional info: Surgical clearance TECHNIQUE: Imaging protocol: Radiologic exam of the chest. Views: 1 view. COMPARISON: CR XR chest 2V* [id number] 07/11/2022 7:43 AM FINDINGS: Lungs: Unremarkable. No consolidation. Pleural spaces: Unremarkable. No pleural effusion. No pneumothorax. Heart/Mediastinum: Unremarkable. No cardiomegaly. Bones/joints: Unremarkable. XR/XR chest 1V portable [id number] IMPRESSION: No acute findings.
--- NOTE | 2022-08-15 12:17 | ECG_ITS ---
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1965 Requested By: Landry Abraham Order Number: [id number] Reading MD: SP KATE Measurements Intervals [place] Rate: 93 P: 60 NV: 148 QRS: 8 QRSD: 93 T: 55 QT: 335 QTc: 418 Interpretive Statements SINUS RHYTHM WITH OCCASIONAL VENTRICULAR PREMATURE COMPLEXES WITH OCCASIONAL SUPRAVENTRICULAR PREMATURE COMPLEXES INCOMPLETE RIGHT BUNDLE BRANCH BLOCK [90+ ms QRS DURATION, TERMINAL R IN V1/V2, 40+ ms S IN I/aVL/V4/V5/V6] No previous ECG available for comparison Electronically Signed On 08-15-2022 17:34:12 CDT by SP KATE [id number]
--- NOTE | 2022-08-15 12:18 | ED_ITS ---
HPI - Extremity Injury (Lower) General: Chief Complaint: Extremity Injury, Lower Stated Complaint: R leg injury Time Seen by Provider: 08/15/22 12:15 History of Present Illness: Presents with trauma to his right lower extremity. 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 Patient had immediate pain and deformity. There was no loss of conscious, patient is not on blood thinners, patient ate a routine breakfast about 4 hours ago, however patient did drink water on the ride over here. Patient is still able to wiggle his toes and ankle and dopplerable pulses were obtained MD complaint: leg injury Onset (ago): minute(s) (Just prior to arrival) Type of Injury: blunt Place: work Severity: moderate Relieving factors: nothing Exacerbating factors: movement Context: direct blow Associated symptoms: Reports inability to bear weight Other symptoms: none Review of Systems General: Reports: 10 or more systems reviewed and unremarkable except in HPI and below Const: Denies: fever(s), chills or body aches Eyes: Denies: change in vision ENMT: Denies: throat pain or odynophagia Card: Denies: chest pain, palpitations or irregular heart rhythm Resp: Denies: dyspnea, productive cough, non-productive cough or wheezing GI: Denies: abdominal pain, nausea, vomiting or diarrhea : Denies: flank pain, difficulty urinating or dysuria Musc: Reports: extremity pain; Denies: neck pain or back pain Skin/Breast: Denies: rash, pruritus or erythema Neuro: Denies: headache(s), numbness in extremities or weakness in extremities Psych: Denies: anxiety or depression Endo: Denies: polyuria, polydipsia or tired all the time Issa/Lymph: Denies: easy bruising or easy bleeding All/Imm: Denies: urticaria, throat swelling or tongue swelling PFSH ED PFSH: Medical History Bladder cancer 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 Family History Father , AT AGE 55 CAD (coronary artery disease) Hypertension Heart attack Mother , AT AGE 73 Cancer COLON Social History Smoking and tobacco status: former smoker Alcohol intake: current Alcohol intake frequency: holidays/special occasions only Marital status: / Number of children: 3 Current occupational status: disabled Physical Exam Const: COMMON NORMALS: no acute distress, average body habitus, patient oriented x3, no limitations, healthy appearing, alert and well nourished HENMT: COMMON NORMALS: normocephalic, atraumatic and hearing grossly normal bilaterally HEAD & SCALP: normocephalic and atraumatic Eye: COMMON NORMALS: Equal, round and reactive pupils present, EOMs intact bilaterally and conjunctivae normal CONJUNCTIVA: Yes conjunctivae normal PUPIL: Yes Equal, round and reactive pupils present Neck/C-Spine: COMMON NORMALS: no lymphadenopathy, supple and no JVD Chest: COMMONS NORMALS: normal inspection of the chest and normal palpation of entire chest wall Resp: COMMON NORMALS: normal respiratory effort, No retractions and No use of accessory muscles Cardio: COMMON NORMALS: no JVD, regular rate, regular rhythm, S1 normal heart sound present, S2 normal heart sound present and No gallops present (Cardio) RATE: regular rate RHYTHM: regular rhythm HEART SOUNDS: S1 normal heart sound present and S2 normal heart sound present GI: COMMON NORMALS: Normal to inspection, nondistended, normoactive bowel sounds present, Soft to palpation, non-tender, No hepatosplenomegaly present and no masses PALPATION: Yes Soft to palpation and Yes No hepatosplenomegaly present Extremity: NARRATIVE EXTREMITY EXAM: Patient has obvious midshaft right tib-fib deformity with swelling. Pulses were dopplerable on bilateral dorsalis pedis. Patient is still able to move his right toes and ankle. Neuro: COMMON NORMALS: patient oriented x3, CN's II-XII intact bilaterally, moves all extremities, no focal motor deficits and no sensory deficits noted SENSORIUM/ORIENTATION: Yes alert Psych: COMMON NORMALS: mental status grossly normal, Normal thought process present, cooperative, normal affect and speech normal SPEECH: Yes normal speech THOUGHT PROCESS: Normal thought process present Course Vital Signs: Vital signs: Vital Signs Temperature 97.7 F 08/15/22 12:04 Pulse Rate 92 08/15/22 12:04 Respiratory Rate 18 08/15/22 12:52 Blood Pressure 132/96 08/15/22 12:04 Pulse Oximetry 96 08/15/22 12:52 Oxygen Delivery Me thod 08/15/22 12:04 MDM - Extremity Injury (Lower) Medical Decision Making Patient presents to the ER with traumatic fracture of the right lower extremity. Patient is currently on no medicines with no allergies, patient has had bladder cancer in the past with a prosthetic bladder currently. Patient ate at approximately 5 hours ago. However he did drink water on his way to the ER. Patient was given 100 mcg of fentanyl IV for pain,. Upon further history and physical exam as well as review of labs and x-rays it is noted patient has a comminuted fracture of his right tibia and fibula. Dr. Mirza orthopedics was consulted. He agrees to take the patient in for admission with probable nailing of the right leg. This was discussed with the patient and he is agreeable to this Differential Diagnosis Unlikely ankle sprain and strain, acute internal derangement of knee or fracture of femur (Probable right tib-fib fracture) Medical Records I reviewed the patient's medical records. Lab Data I reviewed the patient's lab results. 08/15/22 12:09 08/15/22 12:09 Radiology Impressions Tibia/Fibula X-Ray 08/15/22 12:16 IMPRESSION: 1. Comminuted displaced retracted fracture of the tibia 2. Oblique displaced fracture proximal fibula Chest X-Ray 08/15/22 12:17 IMPRESSION: No acute findings. Laboratory Results WBC 16.9 10^3/uL (4.0-10.0) H 08/15/22 12:09 RBC 4.97 10^6/uL (4.1-5.3) 08/15/22 12:09 Hgb 15.6 g/dL (11.7-16.6) 08/15/22 12:09 Hct 46.0 % (42.0-52.0) 08/15/22 12:09 MCV 92.6 fl (80-94) 08/15/22 12:09 MCH 31.4 pg (28.0-34.0) 08/15/22 12:09 MCHC 33.9 g/dL (30.0-36.0) 08/15/22 12:09 RDW 13.0 % (12.1-15.1) 08/15/22 12:09 Plt Count 291 10^3/cmm (130-400) 08/15/22 12:09 MPV 10.1 fL (7.4-10.4) 08/15/22 12:09 Neut % (Auto) 85.7 % 08/15/22 12:09 Lymph % (Auto) 7.0 % 08/15/22 12:09 [place] % (Auto) 6.2 % 08/15/22 12:09 Eos % (Auto) 0.3 % 08/15/22 12:09 Baso % (Auto) 0.3 % 08/15/22 12:09 Neut # (Auto) 14.49 10^3/uL (1.8-7.7) H 08/15/22 12:09 Lymph # (Auto) 1.2 10^3/uL (0.8-4.8) 08/15/22 12:09 [place] # (Auto) 1.0 10^3/uL (0.2-0.9) H 08/15/22 12:09 Eos # (Auto) 0.1 10^3/uL (0.0-0.8) 08/15/22 12:09 Baso # (Auto) 0.1 10^3/uL (0.0-0.1) 08/15/22 12:09 Nucleated RBC % (auto) 0 % 08/15/22 12:09 Nucleated RBCs # 0.0 /100WBC 08/15/22 12:09 PT 12.80 SECONDS (12.1-14.9) 08/15/22 12:09 INR 0.93 (0.8-1.2) 08/15/22 12:09 Sodium 141 mmol/L (136-145) 08/15/22 12:09 Potassium 3.9 mmol/L (3.5-5.1) 08/15/22 12:09 Chloride 104 mmol/L (98-107) 08/15/22 12:09 Carbon Dioxide 25 mmol/L (22-29) 08/15/22 12:09 Anion Gap 15.9 (5-19) 08/15/22 12:09 BUN 26 mg/dL (6-20) H 08/15/22 12:09 Creatinine 1.2 mg/dL (0.7-1.2) 08/15/22 12:09 GFR Calculation 62.4 mL/min (90-130) L 08/15/22 12:09 Glucose 114 mg/dL (65-115) 08/15/22 12:09 Calculated Osmolality 298 mOsm/kg (285-295) H 08/15/22 12:09 Calcium 9.1 mg/dL (8.5-10.5) 08/15/22 12:09 Total Bilirubin 0.3 mg/dL (0.15-1.2) 08/15/22 12:09 AST 21 U/L (0-40) 08/15/22 12:09 ALT 17 U/L (0-41) 08/15/22 12:09 Alkaline Phosphatase 75 U/L (40-130) 08/15/22 12:09 Total Protein 7.3 g/dL (6.6-8.7) 08/15/22 12:09 Albumin 4.0 g/dL (3.5-5.2) 08/15/22 12:09 Globulin 3.3 g/dL (1.3-4.6) 08/15/22 12:09 EKG Data EKG 1: I personally reviewed and interpreted this EKG as follows: EKG interpretation date: 08/15/22 EKG interpretation time: 13:29 Prior EKG tracings: not available for review Interpretation: EKG showed sinus rhythm with occasional PVC, incomplete right bundle branch block, ventricular rate of 93 bpm, IN interval 148, QRS duration of 93, QTc of 386, Discharge Plan Discharge Patient Disposition: Admitted As Inpatient Clinical Impression: History of bladder cancer Closed fracture of right fibula and tibia Qualifiers: Encounter type: initial encounter Qualified Code(s): S82.201A - Unspecified fracture of shaft of right tibia, initial encounter for closed fracture Condition: Stable Coding Level of Care Code ED Back Closer for Shade [facility]
[2022-08-15 12:29] LABS: Basophils # 0.1 10^3/uL (0.0-0.1); Basophils % 0.3 %; Eosinophils # 0.1 10^3/uL (0.0-0.8); Eosinophils % 0.3 %; Hemoglobin 15.6 g/dL (11.7-16.6); Lymphocytes # 1.2 10^3/uL (0.8-4.8); Mean Corpuscular HGB Conc 33.9 g/dL (30.0-36.0); Mean Corpuscular Hemoglobin 31.4 pg (28.0-34.0); Mean Corpuscular Volume 92.6 fl (80-94); Mean Platelet Volume 10.1 fL (7.4-10.4); Monocytes % 6.2 %; Neutrophils # 14.49 10^3/uL (1.8-7.7); Neutrophils % 85.7 %; Nucleated Red Blood Cells % 0 %; Platelet Count 291 10^3/cmm (130-400); Red Blood Count 4.97 10^6/uL (4.1-5.3); White Blood Count 16.9 10^3/uL (4.0-10.0)
[2022-08-15 12:44] LABS: INR 0.93 (0.8-1.2)
[2022-08-15 12:52] LABS: Alanine Aminotransferase 17 U/L (0-41); Alkaline Phosphatase 75 U/L (40-130); Anion Gap 15.9 (5-19); Aspartate Amino Transferase 21 U/L (0-40); Blood Urea Nitrogen 26 mg/dL (6-20); Calcium 9.1 mg/dL (8.5-10.5); Carbon Dioxide 25 mmol/L (22-29); Chloride 104 mmol/L (98-107); Creatinine Clr Calc Pharmacy 74.3215; Globulin 3.3 g/dL (1.3-4.6); Glomerular Filtration Rate 62.4 mL/min (90-130); Glucose 114 mg/dL (65-115); Osmolality Calculated 298 mOsm/kg (285-295); Potassium 3.9 mmol/L (3.5-5.1); Sodium 141 mmol/L (136-145); Total Bilirubin 0.3 mg/dL (0.15-1.2); Total Protein 7.3 g/dL (6.6-8.7)
[2022-08-15] MEDS: fentaNYL 50 mcg/mL INJ 2mL 100 MCG IVP (12:52)
--- NOTE | 2022-08-15 13:41 | PM.HP ---
Providers/Chief Complaint Admitting Physician: Celso Mirza MD Primary Care Provider: ANA Lemons Chief Complaint: R leg injury History of Present Illness Bill Quintero is a 57 year old male who injured his right leg at 1030 this morning. 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 This morning he was working with a friend. He describes a falling tree and hanging up on a smaller tree over the ground. He states is a smaller tree was cut free the tree fell rolling over his right leg. He was able to free himself with the chainsaw and was brought here to our emergency room radiographs revealed a right tib-fib fracture. 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 Family History Father , AT AGE 55 CAD (coronary artery disease) Hypertension Heart attack Mother , AT AGE 73 Cancer COLON Social History Smoking and tobacco status: former smoker Alcohol intake: current Alcohol intake frequency: holidays/special occasions only Marital status: / Number of children: 3 Current occupational status: disabled Vitals/I&O/Wt Last Vital Signs Temp 97.7 F 08/15/22 12:04 Pulse 92 08/15/22 12:04 Resp 18 08/15/22 12:52 BP 132/96 08/15/22 12:04 Pulse Ox 96 08/15/22 12:52 O2 Del Method 08/15/22 12:04 Weight last 48 hrs Weight 185 lb Physical Exam Narrative: HEAD: Normocephalic/atraumatic. NECK: Soft supple nontender. HEART: Normal heart sounds, regular rhythm. CHEST: Clear to auscultation. ABDOMEN: Soft nontender nondistended. Shortening and external rotation of the right foot relative to the knee. There is swelling of the right leg however his compartments are soft. Palpable right dorsalis pedis pulse Ryan extends toes right foot Sensation intact touch Data 08/15/22 12:09 08/15/22 12:09 Other data: 2 views of the right tibia and fibula are reviewed. He has a fracture of his right midshaft tibia and more proximal fibula. There is displacement of the oblique tibial fracture and some comminution. A&P Assessment and plan (1) Closed fracture of right fibula and tibia: I discussed options with the Bill. This is a unstable fracture and so it would benefit from stabilization. I think the best choice to implant would be a intramedullary device. I discussed the procedure with him in detail. I made aware of risk inherent with any tibia fracture including nonunion and malunion. Discussed the possible need for further procedures. Discussed but potential soft tissue complications such as compartment syndrome. We will admit him overnight and follow him clinically. I see nothing to suggest significant swelling and compartment syndrome at present. I discussed risk of a bleeding infection. Discussed hardware that may ultimately need to be removed. I discussed anesthetic risk with surgery. I do not see any obvious surgical risk. We will proceed to the operating room today for intramedullary nailing of the right tibia. Qualifiers: Encounter type: initial encounter Qualified Code(s): S82.201A - Unspecified fracture of shaft of right tibia, initial encounter for closed fracture; S82.401A - Unspecified fracture of shaft of right fibula, initial encounter for closed fracture Attestations Medical Necessity Statement*: Surgery today Coding Level of Care Code Acute Code for [facility] Fwd Diagnoses Closed fracture of right fibula and tibia S82.201A; S82.401A Encounter type: initial encounter
[2022-08-15] MEDS: sodium chloride 0.9% 1,000 ML 30 ML IV (14:05)
[2022-08-15] MEDS: HYDROmorphone 1 mg/mL INJ 1 mL 0.5 MG IVP (14:11)
--- NOTE | 2022-08-15 14:17 | ANES.PREANE2 ---
Pre-Anesthetic Assessment Height/Weight: Height 1.78 m Weight 83.915 kg Temp Pulse Resp BP Pulse Ox O2 Del Method 99.2 F 95 16 139/67 96 08/15/22 13:59 08/15/22 13:59 08/15/22 14:11 08/15/22 13:59 08/15/22 13:59 08/15/22 13:59 Preop Diagnosis: Right tibia and fibula fracture Operation Date: 08/15/22 14:30 Proposed Procedures p IM Tibial Nail Insertion(Right) - Celso Mirza MD Familial anesthetic complications: none Was Beta Lucho taken within 24 hours: N/A Was Clonidine taken within 24 hours: N/A Last intake: Intake Last Liquid Date 08/15/22 Last Liquid Time 10:30 Last Solid Date 08/15/22 Last Solid Time 06:30 Social No alcohol and No tobacco (h/o smoking) Exam alert, oriented x 3, clear to auscultation bilaterally and regular rate & rhythm Airway Submandibular: within normal limits Cervical ROM: within normal limits Mallampati: Class II Dentition: false (upper) Pulmonary Chronic Obstructive Pulmonary Disease Chronic Renal Insufficiency Bladder CA and radiation Anesthetic Plan ASA status: 2 Anesthesia: Regional (specify below) (SAB) Medications/Allergies Home Medications Medication Instructions Recorded Confirmed Last Taken Type No Known Home Medications 12/15/21 08/15/22 Unknown History Allergies Allergy/AdvReac Type Severity Reaction Status Date / Time No Known Allergies Allergy Verified 08/15/22 12:19 Current Medications Generic Name Dose Route Start Last Admin Trade Name Freq PRN Reason Stop Dose Admin Hydromorphone HCl 0.5 mg 08/15/22 13:59 08/15/22 14:11 Hydromorphone 1 Mg/Ml Inj 1 Ml IVP 0.5 mg ONCE PRN Administration For preop pain/anxiety Sodium Chloride 1,000 mls @ 30 mls/hr 08/15/22 14:00 08/15/22 14:05 Sodium Chloride 0.9% IV 08/16/22 13:59 30 mls/hr .Q24H APRYL Administration PFSH Anesthesia Medical History Bladder cancer 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 Family History Father , AT AGE 55 CAD (coronary artery disease) Hypertension Heart attack Mother , AT AGE 73 Cancer COLON Social History Smoking and tobacco status: former smoker Alcohol intake: current Alcohol intake frequency: holidays/special occasions only Marital status: / Number of children: 3 Current occupational status: disabled Data Anesthesia 08/15/22 12:09 08/15/22 12:09 Short CBC 08/15/22 Range/Units 12:09 WBC 16.9 H (4.0-10.0) 10^3/uL Hgb 15.6 (11.7-16.6) g/dL Hct 46.0 (42.0-52.0) % MCV 92.6 (80-94) fl Plt Count 291 (130-400) 10^3/cmm Neut % (Auto) 85.7 % Neut # (Auto) 14.49 H (1.8-7.7) 10^3/uL BMP 08/15/22 12:09 Sodium 141 Potassium 3.9 Chloride 104 Carbon Dioxide 25 BUN 26 H Creatinine 1.2 Glucose 114 Calcium 9.1 Liver Function 08/15/22 Range/Units 12:09 Total Bilirubin 0.3 (0.15-1.2) mg/dL AST 21 (0-40) U/L ALT 17 (0-41) U/L Alkaline Phosphatase 75 (40-130) U/L Albumin 4.0 (3.5-5.2) g/dL Coags 08/15/22 12:09 PT 12.80 INR 0.93 Cardiac Studies: Echocardiogram 05/04/21
[2022-08-15] MEDS: ceFAZolin 2,000 MG in sodium chloride 0.9% (plus) 50 ML 100 MG IV (14:40)
--- NOTE | 2022-08-15 16:18 | XR_ITS ---
WS: [id number] XR tibia fibula RT 2V [id number] REASON FOR EXAM: OR PICS FINDINGS: Long intramedullary bogdan placement in the right tibia with fixation of minimally comminuted mid right tibial fracture. Surgical device and fracture fragments are in proper position and alignment. Oblique fracture through the proximal metadiaphysis of the right fibula are again noted without putnam e compared to the preoperative examination. XR/XR tibia fibula RT 2V [id number] IMPRESSION: Right tibial fracture with fixation as above.
--- NOTE | 2022-08-15 16:26 | P.OP_ITS ---
Operative Report Date of procedure: August 15, 2022 Pre-op diagnosis: Preop Diagnosis Right tibia and fibula fracture Post-op diagnosis: same Procedure done: Intramedullary nailing right tibia Implants: [id number] while by 345 mm tibial nail with 2 static proximal locking bolts and 2 static distal locking the Pathology: none sent Anesthesia: Nerve Block (Spinal) Estimated blood loss (mL): 25 Tourniquet time (min): 64 Findings: The patient is a comminuted tibial midshaft diaphyseal fracture with a high proximal fibular fracture Condition: stable Disposition: PACU Brief History: The patient is a 57-year-old male who stained a fracture of his tibia and fibula of the right leg when a tree rolled over his leg cutting timber. He had a unstable displaced tib-fib fracture. Surgery was chosen to ensure adequate healing and future functional status Procedure: The patient was taken to the operating room and a spinal anesthesia was provided. He was given 2 g of Ancef. He is prepped and draped in the supine position with a tourniquet on the right leg. A timeout was performed. The tourniquet was inflated 350 mmHg A 6 cm long incision was made along the medial edge of the patellar tendon and patella. Dissection was carried down through the extensor retinaculum to the anterior tibia. A sharp awl was used to enter the canal. A ball-tipped gu idewire was passed down the canal. Sequential reaming was accomplished up to 13.5 mm. The final 12 x 345 mm tibial nail was passed with minimal difficulty. Utilizing the proximal guides to static proximal screws were patent placed from medial to lateral. Under the visualization of fluoroscopy a single anterior to posterior in a single medial to lateral distal locking bolts were placed. Wounds were irrigated with saline. The extensor retinaculum was closed with 0 Vicryl. The subcutaneous tissues at the nail entry site were closed with 0 Vicryl. All skin edges were closed with skin marck. The leg was cleaned with hydrogen peroxide solution. Incisions were covered with Xeroflo gauze 4 x 4's and ABD pads. Compressive Webril and Levy wrap were applied. The patient was taken to recovery in stable condition.
--- NOTE | 2022-08-15 16:35 | ANE.PACU2 ---
Inpatient post-anesthesia follow up: Airway intact: Yes Vital signs: Temperature 99.2 F Pulse Rate 95 Respiratory Rate 16 Blood Pressure 139/67 Pulse Oximetry 96 Oxygen Delivery Me thod Room Air Oxygen Flow Rate 6 Fraction of Inspir ed Oxygen Hydration adequate: Yes Nausea and vomiting: No Pain level: 1 Mental status: Baseline
[2022-08-15] MEDS: sodium chloride 0.9% 1,000 ML 80 ML IV (17:53)
[2022-08-15] MEDS: oxyCODONE 5 mg IR Tab/Cap PO (20:40)
[2022-08-15] MEDS: morphine 4 mg/mL SDV 1 mL IVP ×2 (21:16→21:55)
[2022-08-15] MEDS: ceFAZolin 1,000 MG in sodium chloride 0.9% (plus) 50 ML 100 MG IV (21:52)
[2022-08-16] VITALS (9 sets, daily range): BP systolic 124–133; BP diastolic 69–82; PULSE 76–86; RESP 16–19; TEMP 36.7–36.9; O2SAT 92–95
[2022-08-16] MEDS: morphine 4 mg/mL SDV 1 mL IVP ×3 (00:25→06:07)
[2022-08-16] MEDS: oxyCODONE 5 mg IR Tab/Cap PO ×3 (01:08→10:46)
[2022-08-16] MEDS: ceFAZolin 1,000 MG in sodium chloride 0.9% (plus) 50 ML 100 MG IV (06:07)
[2022-08-16] MEDS: sodium chloride 0.9% 1,000 ML 80 ML IV (06:27)
[2022-08-16] MEDS: aspirin 325 mg EC Tablet PO (08:36)
--- NOTE | 2022-08-16 09:52 | PM.DCS ---
Discharge Providers Date of Admission: 08/15/22 13:05 Date of Discharge: August 16, 2022 Attending Provider at Admission: Celso Mirza MD Attending Provider at Discharge: Celso Mirza MD Primary Care Provider: ANA Lemons Diagnoses at Discharge Discharge Diagnosis (1) Closed fracture of right fibula and tibia: Status: Acute Qualifiers: Encounter type: initial encounter Qualified Code(s): S82.201A - Unspecified fracture of shaft of right tibia, initial encounter for closed fracture; S82.401A - Unspecified fracture of shaft of right fibula, initial encounter for closed fracture (2) Status post open reduction with internal fixation of fracture: Status: Acute Reason for Visit Reason for Visit: R leg injury Brief History: The patient is a 57-year-old male who sustained a logging accident when a log rolled over his right leg. He sustained a closed right tib-fib fracture. Hospital Course Hospital Course Bill was seen in the emergency room the day of the injury and taken to the operating room for intramedullary nailing. Postoperatively he did well. He had problems with urinary retention requiring Mcmillan catheter placement. He states this is not a typical with his bladder condition he felt that it as he was more mobile this would resolve. Pain was adequately managed with oxycodone. He made good progress with therapy and was discharged home on the first postoperative day Physical Exam Narrative: On 08/16/2022 his dressings were clean. He had expected swelling of his right calf. He was able to flex extend his toes and ankle. Sensation was intact in the right foot. He had a strong right dorsalis pedis pulse. Urinary Catheter Management: Mcmillan: Cath Placed During This Visit: yes Reason for Continuing Indwelling Catheter: Acute Urinary Retention or Obstruction Urinary Catheter Date of Insertion: 08/16/22 Urinary Catheter Time of Insertion: 06:04 Discharge Data Studies Completed and Pending Completed Studies During Hospitalization Category Date Time Status XR chest 1V portable [id number] Stat Exams 08/15/22 12:17 Completed XR tibia fibula RT 2V [id number] Routine Exams 08/15/22 16:18 Completed XR tibia fibula RT 2V [id number] Stat Exams 08/15/22 12:16 Completed Radiology Impressions Chest X-Ray 08/15/22 12:17 IMPRESSION: No acute findings. Tibia/Fibula X-Ray 08/15/22 16:18 IMPRESSION: Right tibial fracture with fixation as above. Laboratory Results WBC 16.9 10^3/uL (4.0-10.0) H 08/15/22 12:09 RBC 4.97 10^6/uL (4.1-5.3) 08/15/22 12:09 Hgb 15.6 g/dL (11.7-16.6) 08/15/22 12:09 Hct 46.0 % (42.0-52.0) 08/15/22 12:09 MCV 92.6 fl (80-94) 08/15/22 12:09 MCH 31.4 pg (28.0-34.0) 08/15/22 12:09 MCHC 33.9 g/dL (30.0-36.0) 08/15/22 12:09 RDW 13.0 % (12.1-15.1) 08/15/22 12:09 Plt Count 291 10^3/cmm (130-400) 08/15/22 12:09 MPV 10.1 fL (7.4-10.4) 08/15/22 12:09 Neut % (Auto) 85.7 % 08/15/22 12:09 Lymph % (Auto) 7.0 % 08/15/22 12:09 Stafford % (Auto) 6.2 % 08/15/22 12:09 Eos % (Auto) 0.3 % 08/15/22 12:09 Baso % (Auto) 0.3 % 08/15/22 12:09 Neut # (Auto) 14.49 10^3/uL (1.8-7.7) H 08/15/22 12:09 Lymph # (Auto) 1.2 10^3/uL (0.8-4.8) 08/15/22 12:09 Stafford # (Auto) 1.0 10^3/uL (0.2-0.9) H 08/15/22 12:09 Eos # (Auto) 0.1 10^3/uL (0.0-0.8) 08/15/22 12:09 Baso # (Auto) 0.1 10^3/uL (0.0-0.1) 08/15/22 12:09 Nucleated RBC % (auto) 0 % 08/15/22 12:09 Nucleated RBCs # 0.0 /100WBC 08/15/22 12:09 PT 12.80 SECONDS (12.1-14.9) 08/15/22 12:09 INR 0.93 (0.8-1.2) 08/15/22 12:09 Sodium 141 mmol/L (136-145) 08/15/22 12:09 Potassium 3.9 mmol/L (3.5-5.1) 08/15/22 12:09 Chloride 104 mmol/L (98-107) 08/15/22 12:09 Carbon Dioxide 25 mmol/L (22-29) 08/15/22 12:09 Anion Gap 15.9 (5-19) 08/15/22 12:09 BUN 26 mg/dL (6-20) H 08/15/22 12:09 Creatinine 1.2 mg/dL (0.7-1.2) 08/15/22 12:09 GFR Calculation 62.4 mL/min (90-130) L 08/15/22 12:09 Glucose 114 mg/dL (65-115) 08/15/22 12:09 Calculated Osmolality 298 mOsm/kg (285-295) H 08/15/22 12:09 Calcium 9.1 mg/dL (8.5-10.5) 08/15/22 12:09 Total Bilirubin 0.3 mg/dL (0.15-1.2) 08/15/22 12:09 AST 21 U/L (0-40) 08/15/22 12:09 ALT 17 U/L (0-41) 08/15/22 12:09 Alkaline Phosphatase 75 U/L (40-130) 08/15/22 12:09 Total Protein 7.3 g/dL (6.6-8.7) 08/15/22 12:09 Albumin 4.0 g/dL (3.5-5.2) 08/15/22 12:09 Globulin 3.3 g/dL (1.3-4.6) 08/15/22 12:09 Vitals Last Vital Signs Temp 98.5 F 08/16/22 04:07 Pulse 76 08/16/22 04:07 Resp 18 08/16/22 06:07 BP 133/69 08/16/22 04:07 Pulse Ox 92 08/16/22 04:07 O2 Del Method 08/16/22 04:07 O2 Flow Rate 6 08/15/22 16:21 Discharge Plan Discharge Patient Disposition: Home Condition: Stable Prescriptions: New aspirin 325 mg Tablet,Delayed Release (Dr/Ec) 325 mg PO DAILY 30 Days Qty: 30 0RF oxycodone 5 mg Tablet 5 - 10 mg PO Q4H PRN (Reason: Moderate To Severe Pain) 7 Days Qty: 30 0RF Discharge Orders: Discharge Order (Routine); Ordered 08/16/22 Ordered By: Celso Mirza Other Ambulatory Orders: DME: Walker (Order) Location: None Selected Ordered By: Celso Mirza Referrals: Miracle Huddleston FNP [Primary Care Provider] - Armaan Chong FNP [Physician Dynamotor Repairer] - 08/30/22 9:45 am Discharge Diet: Advance as tolerated Discharge Activity: Limit activity as instructed Patient Instructions: Opioid Safety Activity Restrictions/Additional Instructions: 50% right lower extremity weightbearing with walker Take oxycodone for pain Follow-up with primary care physician for removal urinary catheter once mobile Discharge Attestations Time Spent in Discharge Care*: other Quality Metrics Clinical Quality Measures [ No reported AMI, CVA or VTE this stay] Coding Level of Care Code Acute Code for [facility] Fwd Diagnoses Closed fracture of right fibula and tibia S82.201A; S82.401A Encounter type: initial encounter Status post open reduction with internal fixation of fracture Z98.890; Z87.81
--- NOTE | 2022-08-16 11:58 | PC.OT ---
OT EVALUATION ORDERS RECEIVED. SCREEN ONLY PATIENT ONLY SBA FOR LB DRESSING. INSTRUCTED IN DRESSING TECHNIQUES AND PATIENT VERBALIZED UNDERSTANDING.
== END 2022-08-16 11:05 | disposition home or self-care (01) ==
LOC: ER 13:43 → MEDSURG 17:23 → OR 08-16 05:49 → ER 08-16 05:49 → MEDSURG 08-16 08:04
PROVIDERS: Admitting Provider Orthopaedic Surgery; Emergency Provider Emergency Medicine; PCP Nurse Practitioner Family; Visit Provider Orthopaedic Surgery
PROC: (CPT 27759; principal; 2022-08-15 14:30)
DX: S82.201A Unspecified fracture of shaft of right tibia, initial encounter for closed fracture (principal); S82.401A Unspecified fracture of shaft of right fibula, initial encounter for closed fracture; J44.9 Chronic obstructive pulmonary disease, unspecified; Z85.51 Personal history of malignant neoplasm of bladder; Z92.3 Personal history of irradiation; Z87.891 Personal history of nicotine dependence; W23.0XXA Caught, crushed, jammed, or pinched between moving objects, initial encounter
CPT/HCPCS: 27759; 51702; 71045; 73590; 76000; 80053; 85025; 85610; 93005; 96365; 96375; 96376; 97116; 97161; 99285; C1713; G0378; J0690; J1100; J1170; J1580; J2250; J2270; J2405; J2704; J3010; J7030

== ENCOUNTER → 2022-08-30 09:40 | Outpatient (BNVA) | payer MEDICARE, SELFPAY | PROVIDERS: PCP Nurse Practitioner Family; Visit Provider Nurse Practitioner Family | DX: Z98.890 Other specified postprocedural states (principal); Z87.81 Personal history of (healed) traumatic fracture | CPT/HCPCS: 73590; 99024 ==

== ENCOUNTER → 2022-09-27 08:07 | Outpatient (BNVA) | payer MEDICARE, SELFPAY | PROVIDERS: PCP Nurse Practitioner Family; Visit Provider Nurse Practitioner Family | DX: S82.431D Displaced oblique fracture of shaft of right fibula, subsequent encounter for closed fracture with routine healing (principal); S82.201D Unspecified fracture of shaft of right tibia, subsequent encounter for closed fracture with routine healing; X58.XXXD Exposure to other specified factors, subsequent encounter | CPT/HCPCS: 73590; 99024; 99213 ==